=== PATIENT | male | born 1950 ===

== ENCOUNTER 2020-04-03 12:09 | Emergency (ER) | payer BC ==
--- NOTE | 2020-04-03 13:00 | RADIOLOGY REPORT (SQ) ---
EXAM DESCRIPTION: CHEST SINGLE VIEW IMAGES COMPLETED DATE/TIME: 04/03/2020 12:45 pm REASON FOR STUDY: low O2 sat COMPARISON: None. EXAM PARAMETERS: NUMBER OF VIEWS: One view. TECHNIQUE: Single frontal radiographic view of the chest acquired. RADIATION DOSE: NA LIMITATIONS: None. FINDINGS: LUNGS AND PLEURA: No opacities, masses or pneumothorax. No pleural effusion. MEDIASTINUM AND HILAR STRUCTURES: No masses. Contour normal. HEART AND VASCULAR STRUCTURES: Heart normal in size. Normal vasculature. BONES: No acute findings. HARDWARE: None in the chest. OTHER: No other significant finding. IMPRESSION: NO ACUTE RADIOGRAPHIC FINDING IN THE CHEST. TECHNICAL DOCUMENTATION: JOB ID: [id number] [employer]- All Rights Reserved Reading location - IP/workstation name: [email or web address]
[2020-04-03 13:09] LABS: ABSOLUTE LYMPHOCYTES (AUTO) 1.1 10^3/uL (0.5-4.7); ABSOLUTE MONOCYTES (AUTO) 0.2 10^3/uL (0.1-1.4); ABSOLUTE NEUT (AUTO) 2.6 10^3/uL (1.7-8.2); BASOPHILS % (AUTO) 0.3 % (0-2); HEMOGLOBIN 15.6 g/dL (13.5-17.0); LYMPHOCYTES % (AUTO) 27.4 % (13-45); MEAN CORPUSCULAR HEMOGLOBIN 30.7 pg (27.0-33.4); MEAN CORPUSCULAR HGB CONC 34.6 g/dL (32.0-36.0); MEAN CORPUSCULAR VOLUME 89 fl (80-97); RED BLOOD COUNT 5.06 10^6/uL (4.35-5.55); RED CELL DISTRIBUTION WIDTH 12.4 % (11.5-14.0); SEGMENTED NEUTROPHILS % (AUTO) 66.3 % (42-78); TOTAL CELLS COUNTED % (AUTO) 100 %; WHITE BLOOD COUNT 3.9 10^3/uL (4.0-10.5)
[2020-04-03 13:26] LABS: PLATELET COUNT 93 10^3/uL (150-450)
[2020-04-03 13:39] LABS: BLOOD UREA NITROGEN 21 mg/dL (7-20); GLUCOSE 124 mg/dL (75-110)
[2020-04-03 13:40] LABS: ALBUMIN 4.3 g/dL (3.5-5.0); ALKALINE PHOSPHATASE 65 U/L (38-126); ANION GAP 9 (5-19); ASPARTATE AMINO TRANSFERASE 52 U/L (17-59); BILIRUBIN,DIRECT 0.1 mg/dL (0.0-0.4); CARBON DIOXIDE 23 mmol/L (22-30); CHLORIDE 106 mmol/L (98-107); POTASSIUM 3.6 mmol/L (3.6-5.0); TOTAL PROTEIN 8.5 g/dL (6.3-8.2)
[2020-04-03] MEDS ORDERED: NORMAL SALINE 1000 ML 1,000 ML IV ONE (13:47)
--- NOTE | 2020-04-03 13:52 | ER Document Report ---
ED General - General Chief Complaint: General Weakness Stated Complaint: GENERAL WEAKNESS Time Seen by Provider: 04/03/20 13:06 Notes: Patient is a 69-year-old male with a history of hypertension hyperlipidemia who presents to the emergency department the chief complaint of generalized weakness for the past few days. He states that he recently traveled on an airplane to [place] and back. He denies any known sick contacts. He states upon returning he is felt generally weak. States when he rests he feels fine however if he exerts himself in any way he feels very weak and fatigued. States that sometimes he feels like he might pass out. He denies any episodes of syncope or loss of consciousness. He denies any known fevers at home was febrile upon arrival here. He denies any associated symptoms. No chest pain, no shortness of breath, no lower extremity pain or swelling, no cough, no hemoptysis, no history of DVT or PE. No recent surgery. Patient denies any shortness of breath. No known exposures to COVID-19 or any other known sick contacts. TRAVEL OUTSIDE OF THE [place] IN LAST 30 DAYS: No - Related Data Allergies/Adverse Reactions: No Known Allergies Allergy (Unverified 04/03/20 12:34) Home Medications: HTN and highcholesterol meds Past Medical History - Social History Smoking Status: Never Smoker Family History: Reviewed & Not Pertinent Patient has homicidal ideation: No Review of Systems - Review of Systems Constitutional: Fever, Malaise, Weakness -: Yes All other systems reviewed and negative Physical Exam - Vital signs Vitals: Temp Pulse Resp BP Pulse Ox 101.9 F H 89 21 H 143/85 H 92 04/03/20 12:19 04/03/20 12:19 04/03/20 12:19 04/03/20 12:19 04/03/20 12:19 - General General appearance: Appears well, Alert In distress: None - HEENT Head: Normocephalic, Atraumatic Eyes: Normal Conjunctiva: Normal Extraocular movements intact: Yes Neck: Normal, Supple - Respiratory Respiratory status: No respiratory distress Chest status: Nontender Breath sounds: Normal Chest palpation: Normal - Cardiovascular Rhythm: Regular Heart sounds: Normal auscultation - Abdominal Inspection: Normal Distension: No distension Bowel sounds: Normal Tenderness: Nontender Organomegaly: No organomegaly - Extremities General upper extremity: Normal inspection, Nontender, Normal color, Normal ROM, Normal temperature General lower extremity: Normal inspection, Nontender, Normal color, Normal ROM, Normal temperature, Normal weight bearing. No: Sergio's sign - Neurological Neuro grossly intact: Yes Cognition: Normal Orientation: AAOx4 - Psychological Associated symptoms: Normal affect, Normal mood - Skin Skin Temperature: Warm Skin Moisture: Dry Skin Color: Normal Course - Re-evaluation Re-evalutation: 04/03/20 13:53 EK. Sinus rhythm at 80 bpm. Prolonged [place] at 200. No STEMI. Some T wave inversions in V1. No prior for comparison. Interpreted by ED attending. 04/03/20 16:07 Dr. Sidhu reviewed follow-up EKG, agreed with sinus rhythm and no STEMI. Artifact. 04/03/20 16:37 Patient was ambulated back and forth to the bathroom and monitored over 2 different occasions. The first time he was reported that he desaturated to about 92% with exertion and quickly rebounded to 94% when still and 100% at rest. Second ambulatory effort showed the patient only dropping to 94% on room air when ambulated. And quickly returning 200% on room air when seated. Discussed options of admission versus discharge and home isolation. Patient prefers and states that he feels comfortable being discharged home. Because of the bilateral infiltrates we will start him on Zithromax and amoxicillin. We discussed fever control, he was given Tylenol here. Given a liter of fluids. He does not have chest pain or cough or shortness of breath. He is nontoxic in appearance. At this point is felt that he is stable for discharge to home for self monitoring, self-isolation quarantine. I did discuss with him at extreme length to have a low threshold for return to the department. Encouraged to isolate until a negative test result is achieved or if a positive result is achieved until he is 72 hours symptom-free while following up via telemedicine with his regular doctor. I advised that he return here or any ER immediately with any new, persistent or worsening symptoms. He verbalized understood and agreed. 04/03/20 16:58 Patient's repeat troponin trending down. - Vital Signs Vital signs: Temp Pulse Resp BP Pulse Ox 99.0 F 90 28 H 138/81 H 96 04/03/20 12:36 04/03/20 12:30 04/03/20 16:00 04/03/20 12:30 04/03/20 16:00 - Laboratory Result Diagrams: 04/03/20 12:50 04/03/20 12:50 Laboratory results interpreted by me: 04/03/20 04/03/20 12:50 12:50 WBC 3.9 L Plt Count 93 L BUN 21 H Glucose 124 H Total Protein 8.5 H Discharge - Discharge Clinical Impression: Person under investigation for COVID-19 Pneumonia Qualifiers: Pneumonia type: due to unspecified organism Laterality: unspecified laterality Lung location: unspecified part of lung Qualified Code(s): J18.9 - Pneumonia, unspecified organism Fever Qualifiers: Fever type: unspecified Qualified Code(s): R50.9 - Fever, unspecified Condition: Stable Disposition: HOME, SELF-CARE Instructions: COVID-19 Guidance for Persons Under Investigation Additional Instructions: Please self isolate and quarantine in your home at this time. If you receive a negative result you may exit quarantine however if the results returned positive as we suspect you must remain quarantined until 72 hours symptom-free. Please call your doctor for telemedicine follow-up. Please return here or any emergency department immediately with any new, persistent or worsening symptoms. Prescriptions: Amoxicillin Trihydrate [Amoxil 500 mg Capsule] 500 mg PO TID 7 Days #30 capsule Azithromycin [Zithromax 250 mg Tablet] 250 mg PO ASDIR PRN #4 tablet PRN Reason:
[2020-04-03 14:25] LABS: INTERNATIONAL RATION (INR) 0.98; PARTIAL THROMBOPLASTIN TIME 32.5 SEC (23.5-35.8); PHOSPHORUS 3.2 mg/dL (2.5-4.5)
--- NOTE | 2020-04-03 14:25 | RADIOLOGY REPORT (SQ) ---
EXAM DESCRIPTION: CTA CHEST IMAGES COMPLETED DATE/TIME: 04/03/2020 2:04 pm REASON FOR STUDY: low 02, tachypnea COMPARISON: Chest radiograph 04/03/2020 TECHNIQUE: CT scan of the chest performed using helical scanning technique with dynamic intravenous contrast injection. Images reviewed with lung, soft tissue and bone windows. Reconstructed coronal and sagittal MPR images reviewed. Additional 3 dimensional post-processing performed to develop Maximal Intensity Projection images (WA P). All images stored on PACS. All CT scanners at this facility use dose modulation, iterative reconstruction, and/or weight based d osing when appropriate to reduce radiation dose to as low as reasonably achievable (ALARA). [facility]: Dose Right [facility]: CareDose [facility]: Dose Right [facility]: Teradose 4D [facility]: [facility] CONTRAST TYPE AND DOSE: contrast/concentration: Isovue 350.00 mmol/ml; Total Contrast Delivered: 61. 0 ml; Total Saline Delivered: 48.1 ml Contrast bolus adequate for pulmonary arteries and aorta. RENAL FUNCTION: BUN 21; creatinine 0.94 RADIATION DOSE: CT Rad equipment meets quality standard of care and radiation dose reduction techniq ues were employed. CTDIvol: 13.2 - 19.2 mGy. DLP: 736 mGy-cm. . LIMITATIONS: None. FINDINGS: LUNGS AND PLEURA: Multifocal mixed interstitial and airspace opacities in a peripheral dis tribution, some of these appear to be wedge-shaped, others appear rounded. All lobes are involved. No pleural effusion. No pneumothorax. AORTA AND GREAT VESSELS: No aneurysm. No dissection. HEART: No pericardial effusion. No significant coronary artery calcifications. PULMONARY ARTERIES: No emboli visualized in the main pulmonary arteries or the segmental branches. HILAR AND MEDIASTINAL STRUCTURES: Scattered mediastinal lymph nodes measuring up to 1.5 cm in the anastasiya rt axis. HARDWARE: None in the chest. UPPER ABDOMEN: No significant findings. Limited exam. THYROID AND OTHER SOFT TISSUES: No masses. No adenopathy. BONES: No acute or significant finding. 3D MIPS: Confirm above findings. OTHER: No other significant finding. IMPRESSION: 1. No central or segmental pulmonary embolus. 2. Multifocal rounded to geographic areas of mixed interstitial and airspace opacities in a peripher al distribution, consistent with a multi lobar pneumonia. Given distribution, recommend consideratio n for atypical/viral (to include COVID-19) etiology in treatment planning. COMMENT: Quality ID # [id number]: Final reports with documentation of one or more dose reduction techniques (e.g., Automated exposure control, adjustment of the mA and/or kV according to patient size, use of iterative reconstruction technique) TECHNICAL DOCUMENTATION: JOB ID: [id number] 2010 [employer]- All Rights Reserved Reading location - IP/workstation name: [email or web address]
[2020-04-03] MEDS ORDERED: ACETAMINOPHEN 325 MG TABLET PO ONE (16:31)
[2020-04-03] MEDS ORDERED: AZITHROMYCIN 250 MG TABLET PO ONE (16:33)
[2020-04-03] MEDS ORDERED: AMOXICILLIN TRIHYDRATE 500 MG CAPSULE PO ONE (16:33)
[2020-04-03 17:08] VITALS: BP 154/83
--- NOTE | 2020-04-03 18:18 | EKG REPORT ---
SEVERITY:- ABNORMAL ECG - SINUS RHYTHM 88. INCOMPLETE RBBB AND LAFB : Confirmed by: Navi Amaya MD 03-Apr-2020 18:18:04
--- NOTE | 2020-04-03 18:19 | EKG REPORT ---
SEVERITY:- ABNORMAL ECG - SINUS RHYTHM PROBABLE LEFT ATRIAL ABNORMALITY INCOMPLETE RBBB AND LAFB CONSIDER RIGHT VENTRICULAR HYPERTROPHY : Confirmed by: Navi Amaya MD 03-Apr-2020 18:18:35
== END 2020-04-03 17:08 | disposition home or self-care (01) ==
LOC: ER 12:09
DX: U07.1 COVID-19 (principal); J18.9 Pneumonia, unspecified organism; R50.9 Fever, unspecified; Z20.828 Contact with and (suspected) exposure to other viral communicable diseases; R53.1 Weakness; I10 Essential (primary) hypertension; E78.5 Hyperlipidemia, unspecified
CPT/HCPCS: 93005; 99285; 96360; 36415; 83735; 84100; 85025; 85610; 85730; 87635; 80053; 84484; 71045; 71275; 93010; J7030; C9803

== ENCOUNTER 2020-04-09 12:55 | Inpatient (IN) | payer MEDICARE, BC ==
[2020-04-09 14:01] LABS: VENOUS BLOOD BASE EXCESS 2.6 mmol/L; VENOUS BLOOD HCO3 28.1 mmol/L (20-32); VENOUS BLOOD PCO2 45.9 mmHg (35-63); VENOUS BLOOD PH 7.4 (7.30-7.42)
[2020-04-09 14:10] LABS: ABSOLUTE LYMPHOCYTES (AUTO) 0.6 10^3/uL (0.5-4.7); ABSOLUTE MONOCYTES (AUTO) 0.3 10^3/uL (0.1-1.4); ABSOLUTE NEUT (AUTO) 7.8 10^3/uL (1.7-8.2); BASOPHILS % (AUTO) 0.2 % (0-2); EOSINOPHILS % (AUTO) 0.4 % (0-6); HEMATOCRIT 47.3 % (37.9-51.0); HEMOGLOBIN 16.6 g/dL (13.5-17.0); LYMPHOCYTES % (AUTO) 7.1 % (13-45); MEAN CORPUSCULAR HGB CONC 35.1 g/dL (32.0-36.0); MEAN CORPUSCULAR VOLUME 88 fl (80-97); PLATELET COUNT 191 10^3/uL (150-450); RED BLOOD COUNT 5.35 10^6/uL (4.35-5.55); RED CELL DISTRIBUTION WIDTH 12.7 % (11.5-14.0); SEGMENTED NEUTROPHILS % (AUTO) 89.3 % (42-78); TOTAL CELLS COUNTED % (AUTO) 100 %; WHITE BLOOD COUNT 8.7 10^3/uL (4.0-10.5)
[2020-04-09 14:15] LABS: PROTHROMBIN TIME 14.2 SEC (11.4-15.4)
--- NOTE | 2020-04-09 14:26 | RADIOLOGY REPORT (SQ) ---
EXAM DESCRIPTION: CHEST SINGLE VIEW IMAGES COMPLETED DATE/TIME: 04/09/2020 1:56 pm REASON FOR STUDY: bed 5 sepsis protocol COMPARISON: 04/03/2020 EXAM PARAMETERS: NUMBER OF VIEWS: One view. TECHNIQUE: Single frontal radiographic view of the chest acquired. RADIATION DOSE: NA LIMITATIONS: None. FINDINGS: LUNGS AND PLEURA: There are patchy infiltrates in both lower lung youngblood there were not pr esent on the prior study. Lower lung volumes. MEDIASTINUM AND HILAR STRUCTURES: No masses. Contour normal. HEART AND VASCULAR STRUCTURES: Heart size is borderline. This is accentuated by the low lung volumes . BONES: No acute findings. HARDWARE: None in the chest. OTHER: No other significant finding. IMPRESSION: Bilateral airspace disease, pneumonia versus atelectasis. May represent an atypical inf ectious/ inflammatory process. TECHNICAL DOCUMENTATION: JOB ID: [id number] 2010 [employer]- All Rights Reserved Reading location - IP/workstation name: [email or web address]
[2020-04-09 14:35] LABS: ALBUMIN 3.6 g/dL (3.5-5.0); ALKALINE PHOSPHATASE 84 U/L (38-126); ANION GAP 10 (5-19); ASPARTATE AMINO TRANSFERASE 136 U/L (17-59); BILIRUBIN,DIRECT 0.2 mg/dL (0.0-0.4); BILIRUBIN,TOTAL 1.2 mg/dL (0.2-1.3); BLOOD UREA NITROGEN 31 mg/dL (7-20); CALCIUM 9.4 mg/dL (8.4-10.2); CARBON DIOXIDE 28 mmol/L (22-30); CHLORIDE 101 mmol/L (98-107); GLUCOSE 160 mg/dL (75-110); POTASSIUM 3.9 mmol/L (3.6-5.0); TOTAL PROTEIN 7.5 g/dL (6.3-8.2)
--- NOTE | 2020-04-09 14:51 | ER Document Report ---
ED General - General Chief Complaint: Shortness Of Breath Stated Complaint: COUGH,CONGESTION,DIARRHEA Time Seen by Provider: 04/09/20 13:40 Mode of Arrival: Ambulatory Information source: Patient TRAVEL OUTSIDE OF THE [place] IN LAST 30 DAYS: No - HPI Notes: Patient presents complaint of shortness of breath. Patient had a positive COVID test approximately 3 to 4 days ago. He states he has progressively become more short of breath. It is worse with exertion and better with rest. There is obviously no radiation of the symptoms. It is moderate to severe currently. He does have a dry cough as well and has had some fever chills and body aches. The symptoms have been constant. - Related Data Allergies/Adverse Reactions: No Known Allergies Allergy (Verified 04/09/20 13:50) Past Medical History - General Information source: Patient - Social History Smoking Status: Former Smoker Frequency of alcohol use: None Drug Abuse: None Family History: Reviewed & Not Pertinent Patient has homicidal ideation: No Review of Systems - Review of Systems Constitutional: Chills, Malaise Cardiovascular: denies: Chest pain, Palpitations Respiratory: Cough, Short of breath -: Yes All other systems reviewed and negative Physical Exam - Vital signs Vitals: Temp Pulse Resp BP Pulse Ox 98.7 F 104 H 24 H 130/69 H 84 L 04/09/20 13:04 04/09/20 13:04 04/09/20 13:04 04/09/20 13:04 04/09/20 13:04 Interpretation: Tachycardic, Hypoxic, Tachypneic - General General appearance: Appears well, Alert - HEENT Head: Normocephalic, Atraumatic Eyes: Normal - Respiratory Respiratory status: Respiratory distress - mild Chest status: Nontender Breath sounds: Decreased air movement, Rhonchi Chest palpation: Normal - Cardiovascular Rhythm: Tachycardia Heart sounds: Normal auscultation Murmur: No - Abdominal Inspection: Normal Distension: No distension Bowel sounds: Normal Tenderness: Nontender Organomegaly: No organomegaly - Back Back: Normal, Nontender - Extremities General upper extremity: Normal inspection, Nontender, Normal color, Normal ROM, Normal temperature General lower extremity: Normal inspection, Nontender, Normal color, Normal ROM, Normal temperature, Normal weight bearing. No: Sergio's sign - Neurological Neuro grossly intact: Yes Cognition: Normal Orientation: AAOx4 Mariajose Coma Scale Eye Opening: Spontaneous Mariajose Coma Scale Verbal: Oriented Mariajose Coma Scale Motor: Obeys Commands [place] Coma Scale Total: 15 Speech: Normal Motor strength normal: LUE, RUE, LLE, RLE Sensory: Normal - Psychological Associated symptoms: Normal affect, Normal mood - Skin Skin Temperature: Warm Skin Moisture: Dry Skin Color: Normal Course - Re-evaluation Re-evalutation: 04/09/20 14:51 Patient presents with shortness of breath and known COVID infection. X-ray is consistent with COVID viral infection. Patient will be admitted to the hospital for further therapy. - Vital Signs Vital signs: Temp Pulse Resp BP Pulse Ox 98.9 F 100 38 H 136/76 H 91 L 04/09/20 13:50 04/09/20 13:50 04/09/20 14:01 04/09/20 14:01 04/09/20 14:01 - Laboratory Result Diagrams: 04/09/20 13:44 04/09/20 13:44 Laboratory results interpreted by me: 04/09/20 04/09/20 13:44 13:44 Lymph % (Auto) 7.1 L Seg Neutrophils % 89.3 H BUN 31 H Glucose 160 H AST 136 H ALT 66 H - Diagnostic Test Radiology reviewed: Image reviewed, Reports reviewed - EKG Interpretation by Me EKG shows normal: Sinus rhythm Rate: Normal - 98 Rhythm: NSR [place]/QRS: RBBB, LAHB/LAFB Critical Care Note - Critical Care Note Total time excluding time spent on procedures (mins): 50 Comments: Approximately 50 minutes of critical care time were spent on this hypoxic patient with COVID pneumonia. This time was spent reviewing old records. It was spent talking to multiple consultants. It is spent doing multiple reassessments. It is spent reviewing imaging and laboratory values. Discharge - Discharge Clinical Impression: Pneumonia due to COVID-19 virus, Hypoxia Condition: Serious Disposition: ADMITTED INPATIENT Admitting Provider: Colleen (Hospitalist) Jolene monique to admit Unit Admitted: Telemetry
[2020-04-09] MEDS ORDERED: ACETAMINOPHEN 325 MG TABLET PO PRN (15:37)
[2020-04-09] MEDS ORDERED: GUAIFENESIN SYRP 200 MG/10 ML UDC PO PRN (15:37)
[2020-04-09] MEDS ORDERED: ALBUTEROL SULFATE 0.083% NEB 2.5 MG/3 ML AMPUL NEB PRN (15:37)
[2020-04-09] MEDS ORDERED: HYDRALAZINE HCL INJ/PF 20 MG/1 ML SDV IV PRN (15:56)
[2020-04-09] MEDS ORDERED: DEXAMETHASONE SOD PHOSPHATE INJ 4 MG/1 ML VIAL IV ONE (16:00)
--- NOTE | 2020-04-09 16:03 | PDOC H&P ---
History of Present Illness Admission Date/PCP: 04/09/20 15:14 Patient complains of: Shortness of breath History of Present Illness: MARYLU SINGH is a 69 year old male the past medical history significant for hypertension, hyperlipidemia, GERD who presented to the emergency department 04/03/2020 with complaint of generalized weakness; he was discharged home at that time with COVID-19 test pending. This test is since returned positive. He represents today with complaint of chest discomfort on deep inspiration, cough, and dyspnea while at rest. He reports low-grade temperatures at home; T-max 100.7 last 24 hours. Evaluation in the emergency department today revealed Tachycardia, tachypnea (RR 38), hypoxia on room air (84%; 91 on 4 L by nasal cannula) CBC, PT/INR, VBG, and chemistry are unremarkable. Troponin negative. Lactic acid normal. D-dimer, ferritin, LDH, CRP are pending. Chest x-ray shows worsening bilateral airspace disease. Patient is referred to the hospitalist service for admission and management of the above-stated complaints and findings. Past Medical History Cardiac Medical History: Reports: Hyperlipidema, Hypertension Denies: Atrial Fibrillation, Congestive Heart Failure, Coronary Artery Disease, Myocardial Infarction Pulmonary Medical History: Reports: None EENT Medical History: Reports: None Neurological Medical History: Reports: None Endocrine Medical History: Reports: None Renal/ Medical History: Reports: None Malignancy Medical History: Reports: None GI Medical History: Reports: Gastroesophageal Reflux Disease Musculoskeltal Medical History: Reports: None Skin Medical History: Reports: None Psychiatric Medical History: Reports: None Traumatic Medical History: Reports: None Hematology: Reports: None Infectious Medical History: Reports: None Past Surgical History Past Surgical History: Reports: Cholecystectomy Social History Information Source: Patient Lives with: Family Smoking Status: Former Smoker Electronic Cigarette use?: No Frequency of Alcohol Use: Rare Hx Recreational Drug Use: No Drugs: None Hx Prescription Drug Abuse: No - Advance Directive Resuscitation Status: Full Code Surrogate healthcare decision maker:: Patient's . Family History Family History: Reviewed & Not Pertinent Parental Family History Reviewed: Yes Children Family History Reviewed: Yes Sibling(s) Family History Reviewed.: Yes Medication/Allergy Home Medications: Amlodipine Besylate [Norvasc 10 mg Tablet] 10 mg PO DAILY 04/09/20 Atorvastatin Calcium [Lipitor 40 mg Tablet] 40 mg PO QHS 04/09/20 Fenofibrate Nanocrystallized [Tricor 48 mg Tablet] 54 mg PO QHS 04/09/20 Omeprazole 20 mg PO DAILY 04/09/20 Allergies/Adverse Reactions: No Known Allergies Allergy (Verified 04/09/20 13:50) Review of Systems Constitutional: PRESENT: anorexia, chills, fatigue, fever(s), headache(s), weakness. ABSENT: weight gain, weight loss Eyes: ABSENT: visual disturbances Ears: ABSENT: hearing changes Cardiovascular: ABSENT: chest pain, dyspnea on exertion, edema, orthropnea, palpitations Respiratory: PRESENT: cough, dyspnea. ABSENT: hemoptysis Gastrointestinal: PRESENT: diarrhea. ABSENT: abdominal pain, constipation, hematemesis, hematochezia, nausea, vomiting Genitourinary: ABSENT: dysuria, hematuria Musculoskeletal: ABSENT: joint swelling Integumentary: ABSENT: rash, wounds Neurological: ABSENT: abnormal gait, abnormal speech, confusion, dizziness, focal weakness, syncope Psychiatric: ABSENT: anxiety, depression, homidical ideation, suicidal ideation Endocrine: ABSENT: cold intolerance, heat intolerance, polydipsia, polyuria Hematologic/Lymphatic: ABSENT: easy bleeding, easy bruising Physical Exam Vital Signs: Temp Pulse Resp BP Pulse Ox 98.9 F 100 38 H 136/76 H 91 L 04/09/20 13:50 04/09/20 13:50 04/09/20 14:01 04/09/20 14:01 04/09/20 14:01 Intake & Output 04/08/20 04/09/20 04/10/20 06:59 06:59 06:59 Weight 81.647 kg General appearance: PRESENT: cooperative, mild distress, well-developed, well- nourished, other - Acutely ill-appearing Head exam: PRESENT: atraumatic, normocephalic Eye exam: PRESENT: conjunctiva pink, EOMI, PERRLA. ABSENT: scleral icterus Mouth exam: PRESENT: moist, tongue midline Respiratory exam: PRESENT: accessory muscle use, rhonchi, symmetrical, tachypnea, unlabored, other - Supplemental oxygen by nasal cannula. ABSENT: rales, wheezes Cardiovascular exam: PRESENT: RRR. ABSENT: diastolic murmur, rubs, systolic murmur Pulses: PRESENT: normal dorsalis pedis pul Vascular exam: PRESENT: normal capillary refill GI/Abdominal exam: PRESENT: normal bowel sounds, soft. ABSENT: distended, guarding, mass, organolmegaly, rebound, tenderness Rectal exam: PRESENT: deferred Extremities exam: PRESENT: full ROM. ABSENT: calf tenderness, clubbing, pedal edema Neurological exam: PRESENT: alert, awake, oriented to person, oriented to place, oriented to time, oriented to situation, CN II-XII grossly intact. ABSENT: motor sensory deficit Psychiatric exam: PRESENT: anxious - Tearful, appropriate affect, normal mood. ABSENT: homicidal ideation, suicidal ideation Skin exam: PRESENT: dry, intact, warm. ABSENT: cyanosis, rash Results Laboratory Results: 04/09/20 13:44 04/09/20 13:44 04/09/20 04/09/20 04/09/20 13:44 13:44 13:44 WBC 8.7 RBC 5.35 Hgb 16.6 Hct 47.3 MCV 88 MCH 31.0 MCHC 35.1 RDW 12.7 Plt Count 191 Seg Neutrophils % 89.3 H VBG pH 7.40 VBG pCO2 45.9 VBG HCO3 28.1 VBG Base Excess 2.6 Sodium 139.3 Potassium 3.9 Chloride 101 Carbon Dioxide 28 Anion Gap 10 BUN 31 H Creatinine 0.84 Est GFR ( Amer) > 60 Glucose 160 H Lactic Acid Calcium 9.4 Total Bilirubin 1.2 AST 136 H Alkaline Phosphatase 84 Total Protein 7.5 Albumin 3.6 04/09/20 13:44 WBC RBC Hgb Hct MCV MCH MCHC RDW Plt Count Seg Neutrophils % VBG pH VBG pCO2 VBG HCO3 VBG Base Excess Sodium Potassium Chloride Carbon Dioxide Anion Gap BUN Creatinine Est GFR ( Amer) Glucose Lactic Acid 2.0 Calcium Total Bilirubin AST Alkaline Phosphatase Total Protein Albumin 04/09/20 13:44 Troponin I < 0.012 Impressions: Chest X-Ray 04/09/20 13:34 IMPRESSION: Bilateral airspace disease, pneumonia versus atelectasis. May represent an atypical infectious/ inflammatory process. Assessment and Plan - Diagnosis (1) Pneumonia due to COVID-19 virus Is this a current diagnosis for this admission?: Yes Plan: Confirmed COVID positive (04/03/2020) Ferritin, LDH, CRP pending. D-dimer elevated to 3.05. Patient is admitted to the medical floor on continuous cardiac telemetry. He is placed on IV azithromycin x5 days. Start Decadron 4 mg IV twice daily. D-dimer is elevated; will start full dose Lovenox. We will provide supplemental oxygen as needed to maintain saturations greater than 89%. As needed nebulizer treatments. Vitamin C, vitamin D, zinc, melatonin supplementation. Every 2 turns; encourage prone positioning. Incentive spirometer and flutter valve to bedside. (2) Acute respiratory failure with hypoxia Is this a current diagnosis for this admission?: Yes Plan: Secondary to #1. Management as above. (3) Hypertension Qualifiers: Hypertension type: essential hypertension Qualified Code(s): I10 - Essential (primary) hypertension Is this a current diagnosis for this admission?: Yes Plan: Continue home dose amlodipine. IV hydralazine as needed for blood pressure control. Cardiac diet. (4) Hyperlipidemia Is this a current diagnosis for this admission?: Yes Plan: Home dose atorvastatin and fenofibrate. Cardiac diet. - Time Time Spent with patient: 35 or more minutes Medications reviewed and adjusted accordingly: Yes Anticipated discharge: Home - Inpatient Certification Based on my medical assessment, after consideration of the patient's comorbidities, presenting symptoms, or acuity I expect that the services needed warrant INPATIENT care.: Yes I certify that my determination is in accordance with my understanding of Medicare's requirements for reasonable and necessary INPATIENT services [42 CFR 412.3e].: Yes Medical Necessity: Failure to Improve With Outpatient Therapy, Need For IV Fluids, Need For Continuous Telemetry Monitoring, Need for Nebulizer Therapy and Monitoring of Response, Risk of Complication if Not Cared For in Hospital, Risk of Diagnosis Which Will Require Inpatient Eval/Care/Monitoring
[2020-04-09] MEDS ORDERED: AZITHROMYCIN 500 MG in DEXTROSE 5%-WATER 250 ML IV SCH (17:00)
[2020-04-09 17:07] LABS: C-REACTIVE PROTEIN 427.8 mg/L (<10.0)
[2020-04-09] MEDS ORDERED: ZINC SULFATE 220 MG CAPSULE PO SCH (18:00)
[2020-04-09] MEDS ORDERED: ASCORBIC ACID 500 MG TABLET PO SCH (18:00)
[2020-04-09] MEDS: AZITHROMYCIN 500 MG in DEXTROSE 5%-WATER 250 ML IV SCH (21:00)
[2020-04-09] MEDS: ASCORBIC ACID 500 MG TABLET PO SCH (21:52)
[2020-04-09] MEDS: ZINC SULFATE 220 MG CAPSULE PO SCH (21:52)
[2020-04-09] MEDS: GUAIFENESIN 600 MG TABLET.SA PO SCH (21:52)
[2020-04-09] MEDS: MELATONIN 3 MG TABLET PO SCH (21:52)
[2020-04-09] MEDS: ATORVASTATIN CALCIUM 40 MG TABLET PO SCH (21:52)
[2020-04-09] MEDS: FENOFIBRATE NANOCRYSTALLIZED 48 MG TABLET PO SCH (21:53)
[2020-04-09] MEDS: NORMAL SALINE 1000 ML 1,000 ML IV PRN (21:53)
[2020-04-09] MEDS: DEXAMETHASONE SOD PHOSPHATE INJ 4 MG/1 ML VIAL IV SCH (21:53)
[2020-04-09] MEDS: ENOXAPARIN SODIUM INJ 80 MG/0.8 ML DISP.SYRIN SUBCUT SCH (21:55)
[2020-04-10 00:10] LABS: APPEARANCE,URINE SLIGHTLY-CLOUDY; BILIRUBIN,URINE NEGATIVE (NEGATIVE); COLOR,URINE YELLOW; GLUCOSE, URINE NEGATIVE (NEGATIVE); KETONES,URINE NEGATIVE (NEGATIVE); LEUKOCYTE ESTERASE,URINE NEGATIVE (NEGATIVE); NITRITE,URINE NEGATIVE (NEGATIVE); PROTEIN,URINE 100 mg/dL (NEGATIVE); URINE SPECIFIC GRAVITY 1.023
[2020-04-10 05:15] LABS: ABSOLUTE LYMPHOCYTES (AUTO) 0.5 10^3/uL (0.5-4.7); ABSOLUTE MONOCYTES (AUTO) 0.2 10^3/uL (0.1-1.4); ABSOLUTE NEUT (AUTO) 6.7 10^3/uL (1.7-8.2); BASOPHILS % (AUTO) 0.1 % (0-2); HEMATOCRIT 40.8 % (37.9-51.0); LYMPHOCYTES % (AUTO) 6.5 % (13-45); MEAN CORPUSCULAR VOLUME 89 fl (80-97); MONOCYTES % (AUTO) 2.4 % (3-13); PLATELET COUNT 184 10^3/uL (150-450); RED CELL DISTRIBUTION WIDTH 12.4 % (11.5-14.0); TOTAL CELLS COUNTED % (AUTO) 100 %; WHITE BLOOD COUNT 7.4 10^3/uL (4.0-10.5)
[2020-04-10 05:16] LABS: HEMOGLOBIN 14.3 g/dL (13.5-17.0)
[2020-04-10 05:25] LABS: ANION GAP 8 (5-19); BLOOD UREA NITROGEN 25 mg/dL (7-20); CALCIUM 8.7 mg/dL (8.4-10.2); CARBON DIOXIDE 24 mmol/L (22-30); CHLORIDE 104 mmol/L (98-107); GLUCOSE 172 mg/dL (75-110); POTASSIUM 3.9 mmol/L (3.6-5.0)
[2020-04-10] MEDS: ZINC SULFATE 220 MG CAPSULE PO SCH (10:17)
[2020-04-10] MEDS: AMLODIPINE BESYLATE 10 MG TABLET PO SCH (10:17)
[2020-04-10] MEDS: ASCORBIC ACID 500 MG TABLET PO SCH ×2 (10:17→17:06)
[2020-04-10] MEDS: CHOLECALCIFEROL (D3) 400 UNIT TABLET PO SCH (10:18)
[2020-04-10] MEDS: PANTOPRAZOLE SODIUM 20 MG TABLET.DR PO SCH (10:18)
[2020-04-10] MEDS: DEXAMETHASONE SOD PHOSPHATE INJ 4 MG/1 ML VIAL IV SCH ×2 (10:18→21:48)
[2020-04-10] MEDS: GUAIFENESIN 600 MG TABLET.SA PO SCH ×2 (10:18→21:48)
[2020-04-10] MEDS: ENOXAPARIN SODIUM INJ 80 MG/0.8 ML DISP.SYRIN SUBCUT SCH ×2 (10:18→21:48)
--- NOTE | 2020-04-10 13:25 | EKG REPORT ---
SEVERITY:- ABNORMAL ECG - SINUS RHYTHM PROBABLE LEFT ATRIAL ABNORMALITY INCOMPLETE RBBB AND LAFB CONSIDER RIGHT VENTRICULAR HYPERTROPHY : Confirmed by: Roberto Michel MD 10-Apr-2020 13:25:03
--- NOTE | 2020-04-10 15:34 | PDOC PROGRESS REPORT ---
Subjective Progress Note for:: 04/10/20 Subjective:: MARYLU SINGH is a 69 year old male the past medical history significant for hypertension, hyperlipidemia, GERD who was admitted 04/09/2020 with acute respiratory failure with hypoxia secondary to COVID-19 pneumonia. Patient is seen on morning rounds. He is found resting in bed on supplemental oxygen via an HFNC at 30 L/min and 95% FiO2. Currently maintaining oxygen saturations in the low to mid 90s. He has continued mild tachypnea with shallow breathing but overall decreased work of breathing as compared to yesterday. He endorses pleurisy on deep inspiration and coughing. He also admits to continued loose stools. Patient reports profound fatigue but otherwise states that he is feeling slightly better. T-max 99.7 overnight. He denies headache, palpitations, abdominal pain, nausea and vomiting. He has no questions or concerns at this time. Reason For Visit: ACUTE RESPIRATORY FAILURE WITH HYPOXA,COVID Physical Exam Vital Signs: Temp Pulse Resp BP Pulse Ox 97.6 F 82 22 H 121/71 96 04/10/20 12:01 04/10/20 14:00 04/10/20 12:01 04/10/20 12:01 04/10/20 12:01 Pulse Oximeter Continuous Start: 04/09/20 15:38 Freq: RTQ4 Status: Active Protocol: Document 04/10/20 08:50 [facility] (Rec: 04/10/20 10:11 [facility] [id number]) Pulse Oximetry Assessment Oxygen Saturation (92-100) 96 Oxygen Flow Rate (L/min) 30 Oxygen Delivery Method High Flow Nasal Cannula Fraction of Inspired Oxygen (FIO2) 94 Equipment Usage Equipment in Use Continuous SpO2 Machine # 5 Intake & Output 04/09/20 04/10/20 04/11/20 06:59 06:59 06:59 Intake Total 250 Output Total 400 300 Balance -150 -300 Weight 84 kg 84 kg General appearance: PRESENT: no acute distress, cooperative, well-developed, well-nourished Head exam: PRESENT: atraumatic, normocephalic Eye exam: PRESENT: conjunctiva pink, EOMI, PERRLA. ABSENT: scleral icterus Mouth exam: PRESENT: moist, tongue midline Respiratory exam: PRESENT: rhonchi - Right lower youngblood, symmetrical, tachypnea - shallow, other - Pleurisy; supplemental oxygen via HFNC. ABSENT: rales, wheezes Cardiovascular exam: PRESENT: RRR. ABSENT: diastolic murmur, rubs, systolic murmur Pulses: PRESENT: normal dorsalis pedis pul Vascular exam: PRESENT: normal capillary refill GI/Abdominal exam: PRESENT: normal bowel sounds, soft. ABSENT: distended, guarding, mass, organolmegaly, rebound, tenderness Rectal exam: PRESENT: deferred Extremities exam: PRESENT: full ROM. ABSENT: calf tenderness, clubbing, pedal edema Neurological exam: PRESENT: alert, awake, oriented to person, oriented to place, oriented to time, oriented to situation, CN II-XII grossly intact. ABSENT: motor sensory deficit Psychiatric exam: PRESENT: appropriate affect, normal mood. ABSENT: homicidal ideation, suicidal ideation Skin exam: PRESENT: dry, intact, warm. ABSENT: cyanosis, rash Results Laboratory Results: 04/10/20 04:44 04/10/20 04:44 04/09/20 04/09/20 04/09/20 13:44 18:51 22:09 WBC RBC Hgb Hct MCV MCH MCHC RDW Plt Count Seg Neutrophils % Sodium Potassium Chloride Carbon Dioxide Anion Gap BUN Creatinine Est GFR ( Amer) Glucose Lactic Acid 1.5 1.7 Calcium Ferritin 3370.00 H C-Reactive Protein 427.8 H Urine Color Urine Appearance Urine pH Ur Specific [place] Urine Protein Urine Glucose (UA) Urine Ketones Urine Blood Urine Nitrite Ur Leukocyte Esterase Urine WBC (Auto) Urine RBC (Auto) 04/09/20 04/10/20 04/10/20 23:55 04:44 04:44 WBC 7.4 RBC 4.60 Hgb 14.3 D Hct 40.8 MCV 89 MCH 31.0 MCHC 35.0 RDW 12.4 Plt Count 184 Seg Neutrophils % 91.0 H Sodium 136.2 L Potassium 3.9 Chloride 104 Carbon Dioxide 24 Anion Gap 8 BUN 25 H Creatinine 0.57 Est GFR ( Amer) > 60 Glucose 172 H Lactic Acid Calcium 8.7 Ferritin C-Reactive Protein Urine Color YELLOW Urine Appearance SLIGHTLY-CLOUDY Urine pH 6.0 Ur Specific [place] 1.023 Urine Protein 100 H Urine Glucose (UA) NEGATIVE Urine Ketones NEGATIVE Urine Blood MODERATE H Urine Nitrite NEGATIVE Ur Leukocyte Esterase NEGATIVE Urine WBC (Auto) 1 Urine RBC (Auto) 0 04/09/20 13:44 Troponin I < 0.012 Impressions: Chest X-Ray 04/09/20 13:34 IMPRESSION: Bilateral airspace disease, pneumonia versus atelectasis. May represent an atypical infectious/ inflammatory process. Assessment and Plan - Diagnosis (1) Pneumonia due to COVID-19 virus Is this a current diagnosis for this admission?: Yes Plan: Confirmed COVID positive (04/03/2020) Ferritin, LDH, CRP pending. D-dimer elevated to 3.05. Patient is admitted to the medical floor on continuous cardiac telemetry. He is placed on IV azithromycin x5 days. Continue Decadron 4 mg IV twice daily. D-dimer is elevated; continue full dose Lovenox. Start hydroxychloroquine; 400 mg twice daily x2 doses followed by 200 mg twice daily for 6 days. We will provide supplemental oxygen as needed to maintain saturations greater than 89%. Currently on HFNC (not Venturi mask as documented in vitals). Scheduled albuterol HFA. As needed nebulizer treatments. Vitamin C, vitamin D, zinc, melatonin supplementation. Every 2 turns; encourage prone positioning. Incentive spirometer and flutter valve to bedside. (2) Acute respiratory failure with hypoxia Is this a current diagnosis for this admission?: Yes Plan: Secondary to #1. Management as above. (3) Hypertension Qualifiers: Hypertension type: essential hypertension Qualified Code(s): I10 - Essential (primary) hypertension Is this a current diagnosis for this admission?: Yes Plan: Adequately controlled at present. Continue home dose amlodipine. IV hydralazine as needed for blood pressure control. Cardiac diet. (4) Hyperlipidemia Is this a current diagnosis for this admission?: Yes Plan: Home dose atorvastatin and fenofibrate. Cardiac diet. - Plan Summary Summary: Discussed use of hydroxychloroquine with Dr. Cary. - Time Time Spent with patient: 35 or more minutes Medications reviewed and adjusted accordingly: Yes Anticipated discharge: Home
[2020-04-10] MEDS: HYDROXYCHLOROQUINE SULFATE 200 MG TABLET PO SCH (17:06)
[2020-04-10] MEDS: ALBUTEROL SULFATE HFA (90 MCG/PUFF) 8 GM MDI IH SCH (20:56)
[2020-04-10] MEDS: FENOFIBRATE NANOCRYSTALLIZED 48 MG TABLET PO SCH (21:48)
[2020-04-10] MEDS: MELATONIN 3 MG TABLET PO SCH (21:48)
[2020-04-10] MEDS: ATORVASTATIN CALCIUM 40 MG TABLET PO SCH (21:48)
[2020-04-10] MEDS: AZITHROMYCIN 500 MG in DEXTROSE 5%-WATER 250 ML IV SCH ×2 (21:48→21:50)
[2020-04-10] MEDS: NORMAL SALINE 1000 ML 1,000 ML IV PRN (23:00)
[2020-04-11] MEDS: ALBUTEROL SULFATE HFA (90 MCG/PUFF) 8 GM MDI IH SCH ×4 (00:50→17:23)
[2020-04-11 05:40] LABS: HEMATOCRIT 38.7 % (37.9-51.0); HEMOGLOBIN 13.6 g/dL (13.5-17.0); MEAN CORPUSCULAR HGB CONC 35.2 g/dL (32.0-36.0); MEAN CORPUSCULAR VOLUME 88 fl (80-97); PLATELET COUNT 189 10^3/uL (150-450); RED CELL DISTRIBUTION WIDTH 12.4 % (11.5-14.0); WHITE BLOOD COUNT 7.6 10^3/uL (4.0-10.5)
[2020-04-11 06:09] LABS: ALBUMIN 2.6 g/dL (3.5-5.0); ALKALINE PHOSPHATASE 64 U/L (38-126); ANION GAP 6 (5-19); ASPARTATE AMINO TRANSFERASE 74 U/L (17-59); BILIRUBIN,TOTAL 0.7 mg/dL (0.2-1.3); BLOOD UREA NITROGEN 20 mg/dL (7-20); CALCIUM 8.9 mg/dL (8.4-10.2); CARBON DIOXIDE 26 mmol/L (22-30); CHLORIDE 105 mmol/L (98-107); GLUCOSE 168 mg/dL (75-110); POTASSIUM 4.2 mmol/L (3.6-5.0); TOTAL PROTEIN 5.9 g/dL (6.3-8.2)
--- NOTE | 2020-04-11 06:42 | EKG REPORT ---
SEVERITY:- ABNORMAL ECG - SINUS RHYTHM FIRST DEGREE AV BLOCK INCOMPLETE RBBB AND LAFB BORDERLINE PROLONGED QT INTERVAL : Confirmed by: Roberto Michel MD 11-Apr-2020 06:41:45
[2020-04-11 07:09] LABS: APPEARANCE,URINE CLEAR; BILIRUBIN,URINE NEGATIVE (NEGATIVE); COLOR,URINE YELLOW; GLUCOSE, URINE NEGATIVE (NEGATIVE); KETONES,URINE NEGATIVE (NEGATIVE); LEUKOCYTE ESTERASE,URINE NEGATIVE (NEGATIVE); NITRITE,URINE NEGATIVE (NEGATIVE); PROTEIN,URINE 100 mg/dL (NEGATIVE); URINE SPECIFIC GRAVITY 1.021; UROBILINOGEN,URINE NEGATIVE mg/dL (<2.0)
[2020-04-11] MEDS: GUAIFENESIN 600 MG TABLET.SA PO SCH ×2 (09:40→21:18)
[2020-04-11] MEDS: ASCORBIC ACID 500 MG TABLET PO SCH ×2 (09:40→17:23)
[2020-04-11] MEDS: DEXAMETHASONE SOD PHOSPHATE INJ 4 MG/1 ML VIAL IV SCH ×2 (09:40→21:16)
[2020-04-11] MEDS: PANTOPRAZOLE SODIUM 20 MG TABLET.DR PO SCH (09:40)
[2020-04-11] MEDS: HYDROXYCHLOROQUINE SULFATE 200 MG TABLET PO SCH (09:40)
[2020-04-11] MEDS: CHOLECALCIFEROL (D3) 400 UNIT TABLET PO SCH (09:40)
[2020-04-11] MEDS: ZINC SULFATE 220 MG CAPSULE PO SCH (09:40)
[2020-04-11] MEDS: ENOXAPARIN SODIUM INJ 80 MG/0.8 ML DISP.SYRIN SUBCUT SCH ×2 (09:41→21:19)
[2020-04-11] MEDS: AMLODIPINE BESYLATE 10 MG TABLET PO SCH (09:41)
[2020-04-11] MEDS: NORMAL SALINE 1000 ML 1,000 ML IV PRN (11:44)
--- NOTE | 2020-04-11 13:07 | PDOC PROGRESS REPORT ---
Subjective Progress Note for:: 04/11/20 Subjective:: MARYLU SINGH is a 69 year old male the past medical history significant for hypertension, hyperlipidemia, GERD who was admitted 04/09/2020 with acute respiratory failure with hypoxia secondary to COVID-19 pneumonia. Patient is seen on afternoon rounds. He is found resting in bed on supplemental oxygen via an HFNC at 35 L/min and 90% FiO2. Currently maintaining oxygen saturations in the low to mid 90s. Does continue to have dyspnea at rest, though, with slightly improved work of breathing. Has not been ambulatory. He continues to have nonproductive cough with pleurisy related to deep inspiration and coughing. Diarrhea has resolved. He denies fever, chills, palpitations, abdominal pain, nausea, vomiting, and diarrhea. He has no questions or concerns at this time. Reason For Visit: ACUTE RESPIRATORY FAILURE WITH HYPOXA,COVID Physical Exam Vital Signs: Temp Pulse Resp BP Pulse Ox 97.5 F 66 25 H 119/73 92 04/11/20 11:53 04/11/20 11:53 04/11/20 11:53 04/11/20 11:53 04/11/20 11:53 Pulse Oximeter Continuous Start: 04/09/20 15:38 Freq: RTQ4 Status: Active Protocol: Document 04/11/20 08:00 [facility] (Rec: 04/11/20 10:53 [facility] [id number]) Pulse Oximetry Assessment Oxygen Saturation (92-100) 93 Oxygen Flow Rate (L/min) 35 Oxygen Delivery Method High Flow Nasal Cannula Fraction of Inspired Oxygen (FIO2) 90 Equipment Usage Equipment in Use Continuous SpO2 Machine # 5 Intake & Output 04/10/20 04/11/20 04/12/20 06:59 06:59 06:59 Intake Total 250 1500 955 Output Total 400 1225 Balance -150 275 955 Weight 84 kg 84 kg General appearance: PRESENT: no acute distress, cooperative, well-developed, well-nourished - overweight Head exam: PRESENT: atraumatic, normocephalic Eye exam: PRESENT: conjunctiva pink, EOMI, PERRLA. ABSENT: scleral icterus Ear exam: PRESENT: normal external ear exam Mouth exam: PRESENT: moist, tongue midline Neck exam: ABSENT: carotid bruit, JVD, lymphadenopathy, thyromegaly Respiratory exam: PRESENT: clear to auscultation jorge, symmetrical, tachypnea, unlabored, other - HFNC, shallow respirations, pleurisy. ABSENT: rales, rhonchi, wheezes Cardiovascular exam: PRESENT: RRR. ABSENT: diastolic murmur, rubs, systolic murmur Pulses: PRESENT: normal dorsalis pedis pul Vascular exam: PRESENT: normal capillary refill GI/Abdominal exam: PRESENT: normal bowel sounds, soft. ABSENT: distended, guarding, mass, organolmegaly, rebound, tenderness Rectal exam: PRESENT: deferred Extremities exam: PRESENT: full ROM. ABSENT: calf tenderness, clubbing, pedal edema Neurological exam: PRESENT: alert, awake, oriented to person, oriented to place, oriented to time, oriented to situation, CN II-XII grossly intact. ABSENT: motor sensory deficit Psychiatric exam: PRESENT: appropriate affect, normal mood. ABSENT: homicidal ideation, suicidal ideation Skin exam: PRESENT: dry, intact, warm. ABSENT: cyanosis, rash Results Laboratory Results: 04/11/20 04:41 04/11/20 04:41 04/11/20 04/11/20 04/11/20 04:41 04:41 06:42 WBC 7.6 RBC 4.40 Hgb 13.6 Hct 38.7 MCV 88 MCH 31.0 MCHC 35.2 RDW 12.4 Plt Count 189 Sodium 137.4 Potassium 4.2 Chloride 105 Carbon Dioxide 26 Anion Gap 6 BUN 20 Creatinine 0.49 L Est GFR ( Amer) > 60 Glucose 168 H Calcium 8.9 Total Bilirubin 0.7 AST 74 H Alkaline Phosphatase 64 Total Protein 5.9 L Albumin 2.6 L Urine Color YELLOW Urine Appearance CLEAR Urine pH 6.0 Ur Specific [place] 1.021 Urine Protein 100 H Urine Glucose (UA) NEGATIVE Urine Ketones NEGATIVE Urine Blood NEGATIVE Urine Nitrite NEGATIVE Ur Leukocyte Esterase NEGATIVE Urine WBC (Auto) 1 Urine RBC (Auto) 0 04/09/20 13:44 Troponin I < 0.012 Impressions: Chest X-Ray 04/09/20 13:34 IMPRESSION: Bilateral airspace disease, pneumonia versus atelectasis. May represent an atypical infectious/ inflammatory process. Assessment and Plan - Diagnosis (1) Pneumonia due to COVID-19 virus Is this a current diagnosis for this admission?: Yes Plan: Currently on high flow nasal cannula; FiO2 90%, 35 L/min Confirmed COVID positive (04/03/2020) Ferritin 3370, LDH 840, CRP 427 D-dimer elevated to 3.05. Patient is admitted to the medical floor on continuous cardiac telemetry. He is placed on IV azithromycin x5 days. Continue Decadron 4 mg IV twice daily. D-dimer is elevated; continue full dose Lovenox. Hydroxychloroquine; 400 mg twice daily x2 doses followed by 200 mg twice daily for 6 days. We will provide supplemental oxygen as needed to maintain saturations greater than 89%. Scheduled albuterol HFA. As needed nebulizer treatments. Vitamin C, vitamin D, zinc, melatonin supplementation. Every 2 turns; encourage prone positioning. Incentive spirometer and flutter valve to bedside. (2) Acute respiratory failure with hypoxia Is this a current diagnosis for this admission?: Yes Plan: Secondary to #1. Management as above. (3) Hypertension Qualifiers: Hypertension type: essential hypertension Qualified Code(s): I10 - Esse ntial (primary) hypertension Is this a current diagnosis for this admission?: Yes Plan: Adequately controlled at present. Continue home dose amlodipine. IV hydralazine as needed for blood pressure control. Cardiac diet. (4) Hyperlipidemia Is this a current diagnosis for this admission?: Yes Plan: Home dose atorvastatin and fenofibrate. Cardiac diet. - Plan Summary Summary: Previously discussed use of hydroxychloroquine with Dr. Cary. - Time Time Spent with patient: 25-34 minutes Medications reviewed and adjusted accordingly: Yes Anticipated discharge: Home Within: Other
[2020-04-11 17:17] LABS: APPEARANCE,URINE CLEAR; BILIRUBIN,URINE NEGATIVE (NEGATIVE); COLOR,URINE YELLOW; GLUCOSE, URINE 150 mg/dL (NEGATIVE); KETONES,URINE NEGATIVE (NEGATIVE); LEUKOCYTE ESTERASE,URINE NEGATIVE (NEGATIVE); NITRITE,URINE NEGATIVE (NEGATIVE); PROTEIN,URINE 100 mg/dL (NEGATIVE); URINE SPECIFIC GRAVITY 1.024
[2020-04-11] MEDS ORDERED: HYDROXYCHLOROQUINE SULFATE 200 MG TABLET PO SCH (18:00)
[2020-04-11] MEDS: ATORVASTATIN CALCIUM 40 MG TABLET PO SCH (21:18)
[2020-04-11] MEDS: FENOFIBRATE NANOCRYSTALLIZED 48 MG TABLET PO SCH (21:18)
[2020-04-11] MEDS: MELATONIN 3 MG TABLET PO SCH (21:19)
[2020-04-11] MEDS: AZITHROMYCIN 500 MG in DEXTROSE 5%-WATER 250 ML IV SCH (21:27)
[2020-04-12] MEDS: NORMAL SALINE 1000 ML 1,000 ML IV PRN ×2 (00:33→13:53)
[2020-04-12] MEDS: ALBUTEROL SULFATE HFA (90 MCG/PUFF) 8 GM MDI IH SCH ×5 (00:33→23:34)
[2020-04-12] MEDS: PANTOPRAZOLE SODIUM 20 MG TABLET.DR PO SCH (09:29)
[2020-04-12] MEDS: AMLODIPINE BESYLATE 10 MG TABLET PO SCH (09:29)
[2020-04-12] MEDS: DEXAMETHASONE SOD PHOSPHATE INJ 4 MG/1 ML VIAL IV SCH ×2 (09:29→21:48)
[2020-04-12] MEDS: CHOLECALCIFEROL (D3) 400 UNIT TABLET PO SCH (09:29)
[2020-04-12] MEDS: ENOXAPARIN SODIUM INJ 80 MG/0.8 ML DISP.SYRIN SUBCUT SCH ×2 (09:29→21:49)
[2020-04-12] MEDS: ASCORBIC ACID 500 MG TABLET PO SCH ×2 (09:29→17:10)
[2020-04-12] MEDS: ZINC SULFATE 220 MG CAPSULE PO SCH (09:29)
[2020-04-12] MEDS: GUAIFENESIN 600 MG TABLET.SA PO SCH ×2 (09:29→21:48)
--- NOTE | 2020-04-12 11:54 | EKG REPORT ---
SEVERITY:- ABNORMAL ECG - SINUS RHYTHM INCOMPLETE RBBB AND LAFB : Confirmed by: Roberto Michel MD 12-Apr-2020 11:53:44
--- NOTE | 2020-04-12 13:38 | PDOC PROGRESS REPORT ---
Subjective Progress Note for:: 04/12/20 Subjective:: MARYLU SINGH is a 69 year old male the past medical history significant for hypertension, hyperlipidemia, GERD who was admitted 04/09/2020 with acute respiratory failure with hypoxia secondary to COVID-19 pneumonia. Patient is seen on morning rounds. He is found resting in bed on supplemental oxygen via an HFNC at 35 L/min and 80% FiO2. Currently maintaining oxygen saturations in the low to mid 90s w/ RR mid to high 20s with mild retractions and accessory muscle use. He continues to have nonproductive cough with pleurisy related to deep inspiration and coughing. Diarrhea has resolved. Fatigued and anxious today. He denies fever, chills, palpitations, abdominal pain, nausea, vomiting, and diarrhea. He has no questions or concerns at this time. Reason For Visit: ACUTE RESPIRATORY FAILURE WITH HYPOXA,COVID Physical Exam Vital Signs: Temp Pulse Resp BP Pulse Ox 97.7 F 72 19 135/78 H 93 04/12/20 11:21 04/12/20 11:21 04/12/20 11:21 04/12/20 11:21 04/12/20 11:21 Pulse Oximeter Continuous Start: 04/09/20 15:38 Freq: RTQ4 Status: Active Protocol: Document 04/12/20 08:00 [facility] (Rec: 04/12/20 12:47 [facility] [id number]) Pulse Oximetry Assessment Oxygen Saturation (92-100) 94 Oxygen Flow Rate (L/min) 35 Oxygen Delivery Method High Flow Nasal Cannula Fraction of Inspired Oxygen (FIO2) 90 Equipment Usage Equipment in Use Continuous SpO2 Machine # [id number] Intake & Output 04/11/20 04/12/20 04/13/20 06:59 06:59 06:59 Intake Total 1500 2166 360 Output Total 1225 2160 600 Balance 275 6 -240 Weight 84 kg 81.9 kg General appearance: PRESENT: no acute distress, cooperative, well-developed, well-nourished - Overweight Head exam: PRESENT: atraumatic, normocephalic Eye exam: PRESENT: conjunctiva pink, EOMI, PERRLA. ABSENT: scleral icterus Mouth exam: PRESENT: moist, tongue midline Respiratory exam: PRESENT: accessory muscle use, retraction, rhonchi - Bibasilar, symmetrical, tachypnea, other - HFNC. ABSENT: rales, wheezes Cardiovascular exam: PRESENT: RRR. ABSENT: diastolic murmur, rubs, systolic murmur Pulses: PRESENT: normal dorsalis pedis pul Vascular exam: PRESENT: normal capillary refill GI/Abdominal exam: PRESENT: normal bowel sounds, soft. ABSENT: distended, guarding, mass, organolmegaly, rebound, tenderness Rectal exam: PRESENT: deferred Extremities exam: PRESENT: full ROM. ABSENT: calf tenderness, clubbing, pedal edema Neurological exam: PRESENT: alert, awake, oriented to person, oriented to place, oriented to time, oriented to situation, CN II-XII grossly intact. ABSENT: motor sensory deficit Psychiatric exam: PRESENT: anxious, appropriate affect, normal mood. ABSENT: homicidal ideation, suicidal ideation Skin exam: PRESENT: dry, intact, warm. ABSENT: cyanosis, rash Results Laboratory Results: 04/11/20 04:41 04/11/20 04:41 04/11/20 16:53 Urine Color YELLOW Urine Appearance CLEAR Urine pH 6.0 Ur Specific [place] 1.024 Urine Protein 100 H Urine Glucose (UA) 150 H Urine Ketones NEGATIVE Urine Blood NEGATIVE Urine Nitrite NEGATIVE Ur Leukocyte Esterase NEGATIVE Urine WBC (Auto) 2 Urine RBC (Auto) 1 04/09/20 13:44 Troponin I < 0.012 Impressions: Chest X-Ray 04/09/20 13:34 IMPRESSION: Bilateral airspace disease, pneumonia versus atelectasis. May represent an atypical infectious/ inflammatory process. Assessment and Plan - Diagnosis (1) Pneumonia due to COVID-19 virus Is this a current diagnosis for this admission?: Yes Plan: Currently on high flow nasal cannula; FiO2 80%, 35 L/min Confirmed COVID positive (04/03/2020) Ferritin 3370, LDH 840, CRP 427 D-dimer elevated to 3.05. Received Plaquenil x3 doses; have had to discontinue due to QTC 521 Patient is admitted to the medical floor on continuous cardiac telemetry. He is placed on IV azithromycin x5 days. Day #3 Hydroxychloroquine discontinued. Approved for Remdesivir; first dose this afternoon ([facility] transport [facility]) Continue Decadron 4 mg IV twice daily. Continue full dose Lovenox. We will provide supplemental oxygen as needed to maintain saturations greater than 89%. Scheduled albuterol HFA. As needed nebulizer treatments. Vitamin C, vitamin D, zinc, melatonin supplementation. Every 2 turns; encourage prone positioning. Have asked nursing to encourage prone positioning. Incentive spirometer and flutter valve to bedside. (2) Acute respiratory failure with hypoxia Is this a current diagnosis for this admission?: Yes Plan: Secondary to #1. Management as above. (3) Hypertension Qualifiers: Hypertension type: essential hypertension Qualified Code(s): I10 - Essential (primary) hypertension Is this a current diagnosis for this admission?: Yes Plan: Adequately controlled at present. Continue home dose amlodipine. IV hydralazine as needed for blood pressure control. Cardiac diet. (4) Hyperlipidemia Is this a current diagnosis for this admission?: Yes Plan: Home dose atorvastatin and fenofibrate. Cardiac diet. - Plan Summary Summary: Updated patient's daughter, Darling, by phone today. - Time Time Spent with patient: 35 or more minutes Medications reviewed and adjusted accordingly: Yes Anticipated discharge: Home with Homehealth Within: Other
[2020-04-12] MEDS ORDERED: REMDESIVIR (EUA) 200 MG in NORMAL SALINE 250 ML IV ONE (18:00)
[2020-04-12] MEDS: AZITHROMYCIN 500 MG in DEXTROSE 5%-WATER 250 ML IV SCH (21:45)
[2020-04-12] MEDS: ATORVASTATIN CALCIUM 40 MG TABLET PO SCH (21:48)
[2020-04-12] MEDS: MELATONIN 3 MG TABLET PO SCH (21:48)
[2020-04-12] MEDS: FENOFIBRATE NANOCRYSTALLIZED 48 MG TABLET PO SCH (21:48)
[2020-04-13 05:44] LABS: HEMATOCRIT 40.5 % (37.9-51.0); HEMOGLOBIN 14.4 g/dL (13.5-17.0); MEAN CORPUSCULAR HEMOGLOBIN 31.6 pg (27.0-33.4); MEAN CORPUSCULAR HGB CONC 35.7 g/dL (32.0-36.0); MEAN CORPUSCULAR VOLUME 89 fl (80-97); PLATELET COUNT 260 10^3/uL (150-450); RED BLOOD COUNT 4.57 10^6/uL (4.35-5.55); RED CELL DISTRIBUTION WIDTH 12.6 % (11.5-14.0); WHITE BLOOD COUNT 8.7 10^3/uL (4.0-10.5)
[2020-04-13 06:04] LABS: ALBUMIN 2.8 g/dL (3.5-5.0); ALKALINE PHOSPHATASE 76 U/L (38-126); ANION GAP 5 (5-19); ASPARTATE AMINO TRANSFERASE 73 U/L (17-59); BILIRUBIN,TOTAL 0.6 mg/dL (0.2-1.3); BLOOD UREA NITROGEN 16 mg/dL (7-20); CALCIUM 9.2 mg/dL (8.4-10.2); CARBON DIOXIDE 26 mmol/L (22-30); CHLORIDE 108 mmol/L (98-107); GLUCOSE 143 mg/dL (75-110); POTASSIUM 4.4 mmol/L (3.6-5.0); TOTAL PROTEIN 6.5 g/dL (6.3-8.2)
[2020-04-13 06:07] LABS: ABSOLUTE LYMPHOCYTES# (MANUAL) 0.6 10^3/uL (0.5-4.7); ABSOLUTE MONOCYTES # (MANUAL) 0.3 10^3/uL (0.1-1.4); BASOPHILS % (MANUAL) 0 % (0-2); EOSINOPHILS % (MANUAL) 0 % (0-6); LYMPHOCYTES % (MANUAL) 7 % (13-45); MONOCYTES % (MANUAL) 4 % (3-13); SEGMENTED NEUTROPHILS % (MAN) 89 % (42-78); TOTAL CELLS COUNTED 100
[2020-04-13 06:08] LABS: PLATELET COMMENT ADEQUATE; RBC MORPHOLOGY COMMENT NORMO-CYTIC/CHROMIC
[2020-04-13] MEDS: ASCORBIC ACID 500 MG TABLET PO SCH ×2 (09:07→17:01)
[2020-04-13] MEDS: GUAIFENESIN 600 MG TABLET.SA PO SCH ×2 (09:07→22:04)
[2020-04-13] MEDS: CHOLECALCIFEROL (D3) 400 UNIT TABLET PO SCH (09:07)
[2020-04-13] MEDS: DEXAMETHASONE SOD PHOSPHATE INJ 4 MG/1 ML VIAL IV SCH ×2 (09:07→22:04)
[2020-04-13] MEDS: AMLODIPINE BESYLATE 10 MG TABLET PO SCH (09:07)
[2020-04-13] MEDS: ZINC SULFATE 220 MG CAPSULE PO SCH (09:07)
[2020-04-13] MEDS: ALBUTEROL SULFATE HFA (90 MCG/PUFF) 8 GM MDI IH SCH ×3 (09:07→17:01)
[2020-04-13] MEDS: PANTOPRAZOLE SODIUM 20 MG TABLET.DR PO SCH (09:07)
[2020-04-13] MEDS: ENOXAPARIN SODIUM INJ 80 MG/0.8 ML DISP.SYRIN SUBCUT SCH ×2 (09:08→22:04)
[2020-04-13] MEDS: NORMAL SALINE 1000 ML 1,000 ML IV PRN (09:09)
[2020-04-13] MEDS ORDERED: HYDROXYZINE PAMOATE 25 MG CAPSULE PO PRN (12:09)
--- NOTE | 2020-04-13 12:14 | PDOC PROGRESS REPORT ---
Subjective Progress Note for:: 04/13/20 Subjective:: MARYLU SINGH is a 69 year old male the past medical history significant for hypertension, hyperlipidemia, GERD who was admitted 04/09/2020 with acute respiratory failure with hypoxia secondary to COVID-19 pneumonia. Patient is seen on morning rounds. He is found resting in bed on supplemental oxygen via an HFNC at 35 L/min and 70% FiO2. Currently maintaining oxygen saturations in the low to mid 90s; desats to high 70s with minimal activity. Decreased work of breathing, pleurisy and cough today. Primary complaint is profound fatigue. Noted to be somewhat anxious today. He denies fever, chills, palpitations, abdominal pain, nausea, vomiting, and diarrhea. He has no questions or concerns at this time. Reason For Visit: ACUTE RESPIRATORY FAILURE WITH HYPOXA,COVID Physical Exam Vital Signs: Temp Pulse Resp BP Pulse Ox 98.1 F 73 20 130/75 H 91 L 04/13/20 11:42 04/13/20 11:42 04/13/20 11:42 04/13/20 11:42 04/13/20 11:42 Pulse Oximeter Continuous Start: 04/09/20 15:38 Freq: RTQ4 Status: Active Protocol: Document 04/13/20 11:37 [facility] (Rec: 04/13/20 11:37 [facility] [id number]) Pulse Oximetry Assessment Oxygen Saturation (92-100) 94 Oxygen Flow Rate (L/min) 35 Oxygen Delivery Method High Flow Nasal Cannula Fraction of Inspired Oxygen (FIO2) 70 Equipment Usage Equipment in Use Continuous SpO2 Machine # [id number] Intake & Output 04/12/20 04/13/20 04/14/20 06:59 06:59 06:59 Intake Total 2166 3846 Output Total 2160 3590 Balance 6 1396 Weight 81.9 kg 82.3 kg General appearance: PRESENT: no acute distress, cooperative, well-developed, well-nourished Head exam: PRESENT: atraumatic, normocephalic Eye exam: PRESENT: conjunctiva pink, EOMI, PERRLA. ABSENT: scleral icterus Mouth exam: PRESENT: moist, tongue midline Respiratory exam: PRESENT: clear to auscultation jorge, decreased breath sounds - Throughout, symmetrical, tachypnea - shallow, other - HFNC. ABSENT: rales, rhonchi, wheezes Cardiovascular exam: PRESENT: RRR. ABSENT: diastolic murmur, rubs, systolic murmur Vascular exam: PRESENT: normal capillary refill Extremities exam: PRESENT: full ROM. ABSENT: calf tenderness, clubbing, pedal edema Musculoskeletal exam: PRESENT: ambulatory Neurological exam: PRESENT: alert, awake, oriented to person, oriented to place, oriented to time, oriented to situation, CN II-XII grossly intact. ABSENT: motor sensory deficit Psychiatric exam: PRESENT: anxious, appropriate affect, normal mood. ABSENT: homicidal ideation, suicidal ideation Skin exam: PRESENT: dry, intact, warm. ABSENT: cyanosis, rash Results Laboratory Results: 04/13/20 05:31 04/13/20 05:31 04/13/20 04/13/20 05:31 05:31 WBC 8.7 RBC 4.57 Hgb 14.4 Hct 40.5 MCV 89 MCH 31.6 MCHC 35.7 RDW 12.6 Plt Count 260 Seg Neutrophils % Not Reportable Sodium 138.7 Potassium 4.4 Chloride 108 H Carbon Dioxide 26 Anion Gap 5 BUN 16 Creatinine 0.55 Est GFR ( Amer) > 60 Glucose 143 H Calcium 9.2 Ferritin 926.00 H Total Bilirubin 0.6 AST 73 H Alkaline Phosphatase 76 Total Protein 6.5 Albumin 2.8 L 04/09/20 13:44 Troponin I < 0.012 Impressions: Chest X-Ray 04/09/20 13:34 IMPRESSION: Bilateral airspace disease, pneumonia versus atelectasis. May represent an atypical infectious/ inflammatory process. Assessment and Plan - Diagnosis (1) Pneumonia due to COVID-19 virus Is this a current diagnosis for this admission?: Yes Plan: Currently on high flow nasal cannula; FiO2 70%, 35 L/min Confirmed COVID positive (04/03/2020) Ferritin 3370-> 926 D-dimer 3.05-> 2.78. Baseline LDH 840, CRP 427 Received hydroxychloroquine x3 doses; have had to discontinue due to QTC 521 Patient is admitted to the medical floor on continuous cardiac telemetry. He is placed on IV azithromycin x5 days. Day #4 of 5 Continue Remdesivir. Continue Decadron 4 mg IV twice daily. Continue full dose Lovenox. We will provide supplemental oxygen as needed to maintain saturations greater than 89%. Scheduled albuterol HFA. As needed nebulizer treatments. Vitamin C, vitamin D, zinc, melatonin supplementation. Every 2 turns; encourage prone positioning. Have asked nursing to encourage prone positioning. Incentive spirometer and flutter valve to bedside. (2) Acute respiratory failure with hypoxia Is this a current diagnosis for this admission?: Yes Plan: Secondary to #1. Management as above. (3) Hypertension Qualifiers: Hypertension type: essential hypertension Qualified Code(s): I10 - Essential (primary) hypertension Is this a current diagnosis for this admission?: Yes Plan: Adequately controlled at present. Continue home dose amlodipine. IV hydralazine as needed for blood pressure control. Cardiac diet. (4) Hyperlipidemia Is this a current diagnosis for this admission?: Yes Plan: Home dose atorvastatin and fenofibrate. Cardiac diet. - Time Time Spent with patient: 35 or more minutes Medications reviewed and adjusted accordingly: Yes Anticipated discharge: Home Within: Other
[2020-04-13] MEDS: REMDESIVIR (EUA) 100 MG in NORMAL SALINE 250 ML IV SCH (20:11)
[2020-04-13] MEDS: MELATONIN 3 MG TABLET PO SCH (22:04)
[2020-04-13] MEDS: FENOFIBRATE NANOCRYSTALLIZED 48 MG TABLET PO SCH (22:04)
[2020-04-13] MEDS: ATORVASTATIN CALCIUM 40 MG TABLET PO SCH (22:04)
[2020-04-13] MEDS: AZITHROMYCIN 500 MG in DEXTROSE 5%-WATER 250 ML IV SCH (22:06)
[2020-04-14] MEDS: ALBUTEROL SULFATE HFA (90 MCG/PUFF) 8 GM MDI IH SCH ×5 (00:30→23:23)
[2020-04-14] MEDS: NORMAL SALINE 1000 ML 1,000 ML IV PRN ×2 (02:15→16:32)
[2020-04-14 06:44] LABS: HEMATOCRIT 42.5 % (37.9-51.0); HEMOGLOBIN 14.5 g/dL (13.5-17.0); MEAN CORPUSCULAR HEMOGLOBIN 30.5 pg (27.0-33.4); MEAN CORPUSCULAR HGB CONC 34.1 g/dL (32.0-36.0); MEAN CORPUSCULAR VOLUME 89 fl (80-97); PLATELET COUNT 267 10^3/uL (150-450); RED BLOOD COUNT 4.75 10^6/uL (4.35-5.55); RED CELL DISTRIBUTION WIDTH 12.9 % (11.5-14.0); WHITE BLOOD COUNT 9.2 10^3/uL (4.0-10.5)
[2020-04-14] MEDS: ENOXAPARIN SODIUM INJ 80 MG/0.8 ML DISP.SYRIN SUBCUT SCH ×2 (09:31→21:12)
[2020-04-14] MEDS: DEXAMETHASONE SOD PHOSPHATE INJ 4 MG/1 ML VIAL IV SCH ×2 (09:31→21:11)
[2020-04-14] MEDS: ASCORBIC ACID 500 MG TABLET PO SCH ×2 (09:32→18:00)
[2020-04-14] MEDS: CHOLECALCIFEROL (D3) 400 UNIT TABLET PO SCH (09:32)
[2020-04-14] MEDS: ZINC SULFATE 220 MG CAPSULE PO SCH (09:32)
[2020-04-14] MEDS: GUAIFENESIN 600 MG TABLET.SA PO SCH ×2 (09:32→21:12)
[2020-04-14] MEDS: PANTOPRAZOLE SODIUM 20 MG TABLET.DR PO SCH (09:32)
[2020-04-14] MEDS: AMLODIPINE BESYLATE 10 MG TABLET PO SCH (09:32)
[2020-04-14 09:46] LABS: APPEARANCE,URINE CLEAR; BILIRUBIN,URINE NEGATIVE (NEGATIVE); COLOR,URINE YELLOW; GLUCOSE, URINE NEGATIVE (NEGATIVE); KETONES,URINE NEGATIVE (NEGATIVE); LEUKOCYTE ESTERASE,URINE NEGATIVE (NEGATIVE); NITRITE,URINE NEGATIVE (NEGATIVE); PROTEIN,URINE NEGATIVE (NEGATIVE); URINE SPECIFIC GRAVITY 1.011; UROBILINOGEN,URINE NEGATIVE mg/dL (<2.0)
[2020-04-14] MEDS ORDERED: LISINOPRIL 10 MG TABLET PO SCH (10:00)
--- NOTE | 2020-04-14 11:22 | PDOC PROGRESS REPORT ---
Subjective Progress Note for:: 04/14/20 Subjective:: MARYLU SINGH is a 69 year old male the past medical history significant for hypertension, hyperlipidemia, GERD who was admitted 04/09/2020 with acute respiratory failure with hypoxia secondary to COVID-19 pneumonia. Patient is seen on morning rounds. He is found resting in bed on supplemental oxygen via an HFNC at 35 L/min and 85% FiO2. Currently maintaining oxygen saturations in the mid to high 90s. Decreased work of breathing, pleurisy and cough today. Continued profound fatigue. Remains somewhat anxious today. He denies fever, chills, palpitations, abdominal pain, nausea, vomiting, and diarrhea. He has no questions or concerns at this time. Reason For Visit: ACUTE RESPIRATORY FAILURE WITH HYPOXA,COVID Physical Exam Vital Signs: Temp Pulse Resp BP Pulse Ox 97.6 F 68 18 142/98 H 94 04/14/20 07:39 04/14/20 07:39 04/14/20 08:00 04/14/20 07:39 04/14/20 08:00 Pulse Oximeter Continuous Start: 04/09/20 15:38 Freq: RTQ4 Status: Active Protocol: Document 04/14/20 08:00 LDA (Rec: 04/14/20 09:45 LDA [email or web address]) Pulse Oximetry Assessment Oxygen Saturation (92-100) 94 Oxygen Flow Rate (L/min) 35 Oxygen Delivery Method High Flow Nasal Cannula Fraction of Inspired Oxygen (FIO2) 80 Equipment Usage Equipment in Use Continuous SpO2 Machine # [id number] Intake & Output 04/13/20 04/14/20 04/15/20 06:59 06:59 06:59 Intake Total 3846 3736 Output Total 2450 2750 Balance 1396 986 Weight 82.3 kg 83.1 kg General appearance: PRESENT: no acute distress, cooperative, well-developed, well-nourished Head exam: PRESENT: atraumatic, normocephalic Eye exam: PRESENT: conjunctiva pink, EOMI, PERRLA. ABSENT: scleral icterus Mouth exam: PRESENT: moist, tongue midline Respiratory exam: PRESENT: clear to auscultation jorge, decreased breath sounds - Throughout, symmetrical, tachypnea - Shallow, other - HFNC. ABSENT: rales, rhonchi, wheezes Cardiovascular exam: PRESENT: RRR, other - Occasional PVCs by telemetry. ABSENT: diastolic murmur, rubs, systolic murmur Pulses: PRESENT: normal dorsalis pedis pul Vascular exam: PRESENT: normal capillary refill Extremities exam: PRESENT: full ROM. ABSENT: calf tenderness, clubbing, pedal edema Neurological exam: PRESENT: alert, awake, oriented to person, oriented to place, oriented to time, oriented to situation, CN II-XII grossly intact. ABSENT: motor sensory deficit Psychiatric exam: PRESENT: appropriate affect, normal mood. ABSENT: homicidal ideation, suicidal ideation Skin exam: PRESENT: dry, intact, warm. ABSENT: cyanosis, rash Results Laboratory Results: 04/14/20 06:10 04/13/20 05:31 04/14/20 04/14/20 06:10 09:10 WBC 9.2 RBC 4.75 Hgb 14.5 Hct 42.5 MCV 89 MCH 30.5 MCHC 34.1 RDW 12.9 Plt Count 267 Urine Color YELLOW Urine Appearance CLEAR Urine pH 6.0 Ur Specific [place] 1.011 Urine Protein NEGATIVE Urine Glucose (UA) NEGATIVE Urine Ketones NEGATIVE Urine Blood NEGATIVE Urine Nitrite NEGATIVE Ur Leukocyte Esterase NEGATIVE Urine WBC (Auto) 0 Urine RBC (Auto) 0 04/09/20 13:44 Troponin I < 0.012 Impressions: Chest X-Ray 04/09/20 13:34 IMPRESSION: Bilateral airspace disease, pneumonia versus atelectasis. May represent an atypical infectious/ inflammatory process. Assessment and Plan - Diagnosis (1) Pneumonia due to COVID-19 virus Is this a current diagnosis for this admission?: Yes Plan: Currently on high flow nasal cannula; FiO2 70%, 35 L/min Confirmed COVID positive (04/03/2020) Ferritin 3370-> 926 D-dimer 3.05-> 2.78. Baseline LDH 840, CRP 427 Received hydroxychloroquine x3 doses; have had to discontinue due to QTC 521 Patient is admitted to the medical floor on continuous cardiac telemetry. He is placed on IV azithromycin x5 days. Day #5 of 5 Continue Remdesivir. Continue Decadron 4 mg IV twice daily. Continue full dose Lovenox. We will provide supplemental oxygen as needed to maintain saturations greater than 89%. Scheduled albuterol HFA. As needed nebulizer treatments. Vitamin C, vitamin D, zinc, melatonin supplementation. Every 2 turns; encourage prone positioning. Have asked nursing to encourage prone positioning. Incentive spirometer and flutter valve to bedside. (2) Acute respiratory failure with hypoxia Is this a current diagnosis for this admission?: Yes Plan: Secondary to #1. Management as above. (3) Hypertension Qualifiers: Hypertension type: essential hypertension Qualified Code(s): I10 - Essential (primary) hypertension Is this a current diagnosis for this admission?: Yes Plan: elevated HTN w/ frequent PVC by tele. Continue home dose amlodipine. Start low dose metoprolol IV hydralazine as needed for blood pressure control. Cardiac diet. (4) Hyperlipidemia Is this a current diagnosis for this admission?: Yes Plan: Home dose atorvastatin and fenofibrate. Cardiac diet. - Time Time Spent with patient: 35 or more minutes Medications reviewed and adjusted accordingly: Yes Anticipated discharge: Home Within: Other - evidence of improvement; d/c pending oxygenation needs
[2020-04-14] MEDS: ATORVASTATIN CALCIUM 40 MG TABLET PO SCH (21:12)
[2020-04-14] MEDS: MELATONIN 3 MG TABLET PO SCH (21:12)
[2020-04-14] MEDS: METOPROLOL TARTRATE 25 MG TABLET PO SCH (21:12)
[2020-04-14] MEDS: REMDESIVIR (EUA) 100 MG in NORMAL SALINE 250 ML IV SCH (21:13)
[2020-04-14] MEDS: FENOFIBRATE NANOCRYSTALLIZED 48 MG TABLET PO SCH (21:13)
[2020-04-14] MEDS: AZITHROMYCIN 500 MG in DEXTROSE 5%-WATER 250 ML IV SCH (23:22)
[2020-04-15] MEDS: ALBUTEROL SULFATE HFA (90 MCG/PUFF) 8 GM MDI IH SCH ×3 (05:43→17:19)
[2020-04-15 06:04] LABS: ANION GAP 7 (5-19); BLOOD UREA NITROGEN 20 mg/dL (7-20); CALCIUM 9.3 mg/dL (8.4-10.2); CARBON DIOXIDE 24 mmol/L (22-30); CHLORIDE 107 mmol/L (98-107); GLUCOSE 131 mg/dL (75-110); POTASSIUM 4.7 mmol/L (3.6-5.0)
[2020-04-15] MEDS: PANTOPRAZOLE SODIUM 20 MG TABLET.DR PO SCH (09:13)
[2020-04-15] MEDS: AMLODIPINE BESYLATE 10 MG TABLET PO SCH (09:13)
[2020-04-15] MEDS: METOPROLOL TARTRATE 25 MG TABLET PO SCH ×2 (09:13→23:20)
[2020-04-15] MEDS: GUAIFENESIN 600 MG TABLET.SA PO SCH ×2 (09:14→23:17)
[2020-04-15] MEDS: DEXAMETHASONE SOD PHOSPHATE INJ 4 MG/1 ML VIAL IV SCH ×3 (09:14→23:33)
[2020-04-15] MEDS: ENOXAPARIN SODIUM INJ 80 MG/0.8 ML DISP.SYRIN SUBCUT SCH (09:14)
[2020-04-15] MEDS: ASCORBIC ACID 500 MG TABLET PO SCH ×2 (09:14→17:18)
[2020-04-15] MEDS: CHOLECALCIFEROL (D3) 400 UNIT TABLET PO SCH (09:14)
[2020-04-15] MEDS: ZINC SULFATE 220 MG CAPSULE PO SCH (09:14)
[2020-04-15] MEDS: NORMAL SALINE 1000 ML 1,000 ML IV PRN ×2 (11:00→23:38)
--- NOTE | 2020-04-15 16:43 | PDOC PROGRESS REPORT ---
Subjective Progress Note for:: 04/15/20 Subjective:: MARYLU SINGH is a 69 year old male the past medical history significant for hypertension, hyperlipidemia, GERD who was admitted 04/09/2020 with acute respiratory failure with hypoxia secondary to COVID-19 pneumonia. Patient is seen on afternoon rounds. He is found resting in bed on supplemental oxygen via an HFNC at 30 L/min and 60% FiO2. Currently maintaining oxygen saturations in the mid to high 90s. Decreased work of breathing, pleurisy and cough today. Continued fatigue, though also improved. Sat up to the recliner today. He denies fever, chills, palpitations, abdominal pain, nausea, vomiting, and diarrhea. He has no questions or concerns at this time. Reason For Visit: ACUTE RESPIRATORY FAILURE WITH HYPOXA,COVID Physical Exam Vital Signs: Temp Pulse Resp BP Pulse Ox 98.3 F 61 20 132/80 H 96 04/15/20 16:12 04/15/20 16:12 04/15/20 11:25 04/15/20 16:12 04/15/20 16:12 Pulse Oximeter Continuous Start: 04/09/20 15:38 Freq: RTQ4 Status: Active Protocol: Document 04/15/20 12:10 NSM (Rec: 04/15/20 13:49 NSM [id number]) Pulse Oximetry Assessment Oxygen Saturation (92-100) 97 Oxygen Flow Rate (L/min) 30 Oxygen Delivery Method High Flow Nasal Cannula Fraction of Inspired Oxygen (FIO2) 60 Equipment Usage Equipment in Use Continuous SpO2 Machine # N5 Intake & Output 04/14/20 04/15/20 04/16/20 06:59 06:59 06:59 Intake Total 3736 4320 96 Output Total 3760 5020 Balance 986 -700 96 Weight 83.1 kg 78.3 kg General appearance: PRESENT: no acute distress, cooperative, well-developed, well-nourished Head exam: PRESENT: atraumatic, normocephalic Eye exam: PRESENT: conjunctiva pink, EOMI, PERRLA. ABSENT: scleral icterus Mouth exam: PRESENT: moist, tongue midline Respiratory exam: PRESENT: clear to auscultation jorge, symmetrical, unlabored, other - HFNC. ABSENT: rales, rhonchi, wheezes Cardiovascular exam: PRESENT: RRR. ABSENT: diastolic murmur, rubs, systolic murmur Pulses: PRESENT: normal dorsalis pedis pul Vascular exam: PRESENT: normal capillary refill Extremities exam: PRESENT: full ROM. ABSENT: calf tenderness, clubbing, pedal edema Neurological exam: PRESENT: alert, awake, oriented to person, oriented to place, oriented to time, oriented to situation, CN II-XII grossly intact. ABSENT: motor sensory deficit Psychiatric exam: PRESENT: appropriate affect, normal mood. ABSENT: homicidal ideation, suicidal ideation Skin exam: PRESENT: dry, intact, warm. ABSENT: cyanosis, rash Results Laboratory Results: 04/14/20 06:10 04/15/20 05:20 04/15/20 05:20 Sodium 137.9 Potassium 4.7 Chloride 107 Carbon Dioxide 24 Anion Gap 7 BUN 20 Creatinine 0.55 Est GFR ( Amer) > 60 Glucose 131 H Calcium 9.3 Ferritin 745.00 H 04/09/20 14:36 Blood Blood Culture - Final NO GROWTH IN 5 DAYS 04/09/20 13:44 Blood Blood Culture - Final NO GROWTH IN 5 DAYS 04/09/20 13:44 Troponin I < 0.012 Impressions: Chest X-Ray 04/09/20 13:34 IMPRESSION: Bilateral airspace disease, pneumonia versus atelectasis. May represent an atypical infectious/ inflammatory process. Assessment and Plan - Diagnosis (1) Pneumonia due to COVID-19 virus Is this a current diagnosis for this admission?: Yes Plan: Currently on high flow nasal cannula; FiO2 70%, 35 L/min Confirmed COVID positive (04/03/2020) Ferritin 3370-> 926-> 745 D-dimer 3.05-> 2.78-> 2.12 Baseline LDH 840, CRP 427 Received hydroxychloroquine x3 doses; have had to discontinue due to QTC 521 Completed full course of Azithromycin Patient is admitted to the medical floor on continuous cardiac telemetry. Continue Remdesivir. Continue Decadron; decreased dose to 6mg/daily in divided doses Continue full dose Lovenox. We will provide supplemental oxygen as needed to maintain saturations greater th an 89%. Scheduled albuterol HFA. As needed nebulizer treatments. Vitamin C, vitamin D, zinc, melatonin supplementation. Every 2 turns; encourage prone positioning. Have asked nursing to encourage p henri positioning. Incentive spirometer and flutter valve to bedside. (2) Acute respiratory failure with hypoxia Is this a current diagnosis for this admission?: Yes Plan: Secondary to #1. Management as above. (3) Hypertension Qualifiers: Hypertension type: essential hypertension Qualified Code(s): I10 - Essential (primary) hypertension Is this a current diagnosis for this admission?: Yes Plan: Improved elevated HTN w/ frequent PVC by tele. Continue home dose amlodipine. Continue low dose metoprolol IV hydralazine as needed for blood pressure control. Cardiac diet. (4) Hyperlipidemia Is this a current diagnosis for this admission?: Yes Plan: Home dose atorvastatin and fenofibrate. Cardiac diet. - Time Time Spent with patient: 35 or more minutes Medications reviewed and adjusted accordingly: Yes Anticipated discharge: Home Within: Other - >4 days
[2020-04-15] MEDS ORDERED: DEXAMETHASONE SOD PHOSPHATE INJ 4 MG/1 ML VIAL IV SCH (22:00)
[2020-04-15] MEDS: ATORVASTATIN CALCIUM 40 MG TABLET PO SCH (23:17)
[2020-04-15] MEDS: MELATONIN 3 MG TABLET PO SCH (23:17)
[2020-04-15] MEDS: FENOFIBRATE NANOCRYSTALLIZED 48 MG TABLET PO SCH (23:17)
[2020-04-15] MEDS: REMDESIVIR (EUA) 100 MG in NORMAL SALINE 250 ML IV SCH (23:34)
[2020-04-16] MEDS: REMDESIVIR (EUA) 100 MG in NORMAL SALINE 250 ML IV SCH ×2 (03:16→20:49)
[2020-04-16 05:30] LABS: HEMATOCRIT 44.1 % (37.9-51.0); HEMOGLOBIN 14.9 g/dL (13.5-17.0); MEAN CORPUSCULAR HEMOGLOBIN 30.7 pg (27.0-33.4); MEAN CORPUSCULAR HGB CONC 33.8 g/dL (32.0-36.0); MEAN CORPUSCULAR VOLUME 91 fl (80-97); PLATELET COUNT 287 10^3/uL (150-450); RED BLOOD COUNT 4.85 10^6/uL (4.35-5.55); RED CELL DISTRIBUTION WIDTH 12.8 % (11.5-14.0); WHITE BLOOD COUNT 10.7 10^3/uL (4.0-10.5)
[2020-04-16] MEDS: DEXAMETHASONE SOD PHOSPHATE INJ 4 MG/1 ML VIAL IV SCH ×3 (06:08→21:02)
[2020-04-16] MEDS: ALBUTEROL SULFATE HFA (90 MCG/PUFF) 8 GM MDI IH SCH ×4 (06:09→17:15)
[2020-04-16] MEDS: ENOXAPARIN SODIUM INJ 80 MG/0.8 ML DISP.SYRIN SUBCUT SCH ×3 (10:23→21:01)
[2020-04-16] MEDS: METOPROLOL TARTRATE 25 MG TABLET PO SCH ×2 (10:24→21:02)
[2020-04-16] MEDS: ZINC SULFATE 220 MG CAPSULE PO SCH (10:24)
[2020-04-16] MEDS: CHOLECALCIFEROL (D3) 400 UNIT TABLET PO SCH (10:24)
[2020-04-16] MEDS: PANTOPRAZOLE SODIUM 20 MG TABLET.DR PO SCH (10:24)
[2020-04-16] MEDS: AMLODIPINE BESYLATE 10 MG TABLET PO SCH (10:24)
[2020-04-16] MEDS: ASCORBIC ACID 500 MG TABLET PO SCH ×2 (10:24→17:14)
[2020-04-16] MEDS: GUAIFENESIN 600 MG TABLET.SA PO SCH ×2 (10:24→21:01)
[2020-04-16] MEDS: NORMAL SALINE 1000 ML 1,000 ML IV PRN (10:37)
--- NOTE | 2020-04-16 18:13 | PDOC PROGRESS REPORT ---
Subjective Progress Note for:: 04/16/20 Subjective:: Patient states that he feels better today Reason For Visit: ACUTE RESPIRATORY FAILURE WITH HYPOXA,COVID Physical Exam Vital Signs: Temp Pulse Resp BP Pulse Ox 97.7 F 58 L 16 141/83 H 96 04/16/20 15:42 04/16/20 15:42 04/16/20 15:42 04/16/20 15:42 04/16/20 16:34 Pulse Oximeter Continuous Start: 04/09/20 15:38 Freq: RTQ4 Status: Active Protocol: Document 04/16/20 16:34 NSM (Rec: 04/16/20 16:44 NSM [email or web address]) Pulse Oximetry Assessment Oxygen Saturation (92-100) 96 Oxygen Flow Rate (L/min) 3 Oxygen Delivery Method Nasal Cannula Fraction of Inspired Oxygen (FIO2) 32 Equipment Usage Equipment in Use Continuous SpO2 Machine # N5 Intake & Output 04/15/20 04/16/20 04/17/20 06:59 06:59 06:59 Intake Total 4320 1876 1174 Output Total 5023 2480 1475 Balance -700 -1949 -139 Weight 78.3 kg 78.1 kg General appearance: PRESENT: no acute distress, cooperative, well-developed, well-nourished Head exam: PRESENT: atraumatic Eye exam: PRESENT: conjunctiva pink Mouth exam: PRESENT: moist, tongue midline Neck exam: ABSENT: JVD Respiratory exam: PRESENT: clear to auscultation jorge - Breath sounds coarse, symmetrical, unlabored. ABSENT: rales, rhonchi, wheezes Cardiovascular exam: PRESENT: RRR, +S1, +S2 Pulses: PRESENT: normal radial pulses GI/Abdominal exam: PRESENT: normal bowel sounds, soft. ABSENT: distended, tenderness Rectal exam: PRESENT: deferred Extremities exam: PRESENT: full ROM. ABSENT: calf tenderness, pedal edema Musculoskeletal exam: PRESENT: ambulatory Neurological exam: PRESENT: alert, awake, oriented to person, oriented to place, oriented to time, oriented to situation Psychiatric exam: PRESENT: appropriate affect, normal mood. ABSENT: agitated, anxious Skin exam: PRESENT: dry, warm Results Laboratory Results: 04/16/20 04:37 04/15/20 05:20 04/16/20 04:37 WBC 10.7 H RBC 4.85 Hgb 14.9 Hct 44.1 MCV 91 MCH 30.7 MCHC 33.8 RDW 12.8 Plt Count 287 04/09/20 13:44 Troponin I < 0.012 Impressions: Chest X-Ray 04/09/20 13:34 IMPRESSION: Bilateral airspace disease, pneumonia versus atelectasis. May represent an atypical infectious/ inflammatory process. Assessment and Plan - Diagnosis (1) Pneumonia due to COVID-19 virus Is this a current diagnosis for this admission?: Yes Plan: Confirmed SARS-CoV-2 +04/03/2020 Continues to tolerate decreasing FiO2, continue to wean as tolerated Inflammatory markers continue to trend down Patient did receive hydroxychloroquine x3 doses however, this was discontinued 10/28 QTC of 521 Completed course of azithromycin Continue room to severe 100 mg IV daily Continue dexamethasone 2 mg IV every 8 hours Continue ascorbic acid 500 mg p.o. twice daily Continue vitamin D 400 units p.o. daily Continue zinc sulfate 220 mg p.o. daily Continue melatonin 6 mg p.o. daily at at bedtime Patient chronically on PPI so will hold famotidine Continue full dose anticoagulation with enoxaparin 80 mg subcutaneous every 12 hours Continue albuterol MDI 2 puffs every 6 hous Continue guaifenesin SR 600 mg p.o. every 12 hours Continue aggressive pulmonary toilet (2) Acute respiratory failure with hypoxia Is this a current diagnosis for this admission?: Yes Plan: Secondary to #1. Management as above. (3) Hypertension Qualifiers: Hypertension type: essential hypertension Qualified Code(s): I10 - Essential (primary) hypertension Is this a current diagnosis for this admission?: Yes Plan: BP slightly elevated but acceptable Continue amlodipine 10 mg p.o. daily Continue metoprolol tartrate 12.5 mg p.o. every 12 hours Continue hydralazine 10 mg IV every 4 hours PRN (4) Dyslipidemia Is this a current diagnosis for this admission?: Yes Plan: Continue atorvastatin 40 mg p.o. daily at bedtime Continue fenofibrate 48 mg p.o. daily at bedtime - Time Time Spent with patient: 25-34 minutes Medications reviewed and adjusted accordingly: Yes Anticipated discharge: Home Within: within 72 hours
[2020-04-16 18:41] LABS: APPEARANCE,URINE CLEAR; BILIRUBIN,URINE NEGATIVE (NEGATIVE); COLOR,URINE YELLOW; GLUCOSE, URINE NEGATIVE (NEGATIVE); KETONES,URINE NEGATIVE (NEGATIVE); LEUKOCYTE ESTERASE,URINE NEGATIVE (NEGATIVE); NITRITE,URINE NEGATIVE (NEGATIVE); PROTEIN,URINE NEGATIVE (NEGATIVE); URINE SPECIFIC GRAVITY 1.012; UROBILINOGEN,URINE NEGATIVE mg/dL (<2.0)
[2020-04-16] MEDS: FENOFIBRATE NANOCRYSTALLIZED 48 MG TABLET PO SCH (21:01)
[2020-04-16] MEDS: ATORVASTATIN CALCIUM 40 MG TABLET PO SCH (21:01)
[2020-04-16] MEDS: MELATONIN 3 MG TABLET PO SCH (21:01)
[2020-04-17] MEDS: ALBUTEROL SULFATE HFA (90 MCG/PUFF) 8 GM MDI IH SCH ×4 (01:00→17:32)
[2020-04-17] MEDS: DEXAMETHASONE SOD PHOSPHATE INJ 4 MG/1 ML VIAL IV SCH ×3 (05:48→21:36)
[2020-04-17] MEDS: NORMAL SALINE 1000 ML 1,000 ML IV PRN (06:13)
[2020-04-17 08:31] LABS: HEMATOCRIT 44.3 % (37.9-51.0); HEMOGLOBIN 15.2 g/dL (13.5-17.0); MEAN CORPUSCULAR HEMOGLOBIN 30.8 pg (27.0-33.4); MEAN CORPUSCULAR HGB CONC 34.3 g/dL (32.0-36.0); MEAN CORPUSCULAR VOLUME 90 fl (80-97); PLATELET COUNT 289 10^3/uL (150-450); RED BLOOD COUNT 4.93 10^6/uL (4.35-5.55); RED CELL DISTRIBUTION WIDTH 12.9 % (11.5-14.0); WHITE BLOOD COUNT 7.9 10^3/uL (4.0-10.5)
[2020-04-17 08:50] LABS: ABSOLUTE LYMPHOCYTES# (MANUAL) 0.3 10^3/uL (0.5-4.7); ABSOLUTE MONOCYTES # (MANUAL) 0.7 10^3/uL (0.1-1.4); BASOPHILS % (MANUAL) 0 % (0-2); EOSINOPHILS % (MANUAL) 0 % (0-6); LYMPHOCYTES % (MANUAL) 4 % (13-45); MONOCYTES % (MANUAL) 9 % (3-13); RBC MORPHOLOGY COMMENT NORMO-CYTIC/CHROMIC; SEGMENTED NEUTROPHILS % (MAN) 87 % (42-78); TOTAL CELLS COUNTED 100
[2020-04-17 08:51] LABS: PLATELET COMMENT ADEQUATE
--- NOTE | 2020-04-17 09:52 | PDOC PROGRESS REPORT ---
Subjective Progress Note for:: 04/17/20 Subjective:: Patient states that he feels as if his breathing is "pretty good" today Reason For Visit: ACUTE RESPIRATORY FAILURE WITH HYPOXA,COVID Physical Exam Vital Signs: Temp Pulse Resp BP Pulse Ox 97.4 F 56 L 16 165/86 H 96 04/17/20 08:00 04/17/20 08:00 04/17/20 08:00 04/17/20 08:00 04/17/20 08:00 Pulse Oximeter Continuous Start: 04/09/20 15:38 Freq: RTQ4 Status: Active Protocol: Document 04/17/20 07:50 [facility] (Rec: 04/17/20 08:31 [facility] [email or web address]) Pulse Oximetry Assessment Oxygen Saturation (92-100) 96 Oxygen Flow Rate (L/min) 4 Oxygen Delivery Method Oxymizer Oxygen Conserving Device Fraction of Inspired Oxygen (FIO2) 36 Equipment Usage Equipment in Use Continuous SpO2 Machine # 5 Intake & Output 04/16/20 04/17/20 04/18/20 06:59 06:59 06:59 Intake Total 1876 3904 Output Total 3825 4225 Balance -1949 -321 Weight 78.1 kg 78 kg General appearance: PRESENT: no acute distress, cooperative, well-developed, well-nourished Head exam: PRESENT: atraumatic, normocephalic Eye exam: PRESENT: conjunctiva pink Mouth exam: PRESENT: moist, tongue midline Neck exam: PRESENT: full ROM. ABSENT: JVD, tracheal deviation Respiratory exam: PRESENT: clear to auscultation jorge, decreased breath sounds, symmetrical, unlabored. ABSENT: accessory muscle use, rales, retraction, rhonchi, wheezes Cardiovascular exam: PRESENT: RRR, +S1, +S2 Pulses: PRESENT: normal carotid pulses, normal radial pulses Vascular exam: PRESENT: normal capillary refill GI/Abdominal exam: PRESENT: normal bowel sounds, soft. ABSENT: distended, tenderness Rectal exam: PRESENT: deferred Extremities exam: PRESENT: full ROM. ABSENT: calf tenderness, clubbing, pedal edema Musculoskeletal exam: PRESENT: ambulatory Neurological exam: PRESENT: alert, awake, oriented to person, oriented to place, oriented to time, oriented to situation, CN II-XII grossly intact. ABSENT: motor sensory deficit Psychiatric exam: ABSENT: agitated, anxious Skin exam: PRESENT: dry, normal color, warm. ABSENT: abrasion Results Laboratory Results: 04/17/20 07:57 04/17/20 07:57 04/16/20 04/17/20 04/17/20 18:00 07:57 07:57 WBC 7.9 RBC 4.93 Hgb 15.2 Hct 44.3 MCV 90 MCH 30.8 MCHC 34.3 RDW 12.9 Plt Count 289 Seg Neutrophils % Not Reportable Sodium Cancelled Potassium Cancelled Chloride Cancelled Carbon Dioxide Cancelled Anion Gap Cancelled BUN Cancelled Creatinine Cancelled Est GFR ( Amer) Cancelled Est GFR (Non-Af Amer) Cancelled Glucose Cancelled Calcium Cancelled Urine Color YELLOW Urine Appearance CLEAR Urine pH 6.0 Ur Specific [place] 1.012 Urine Protein NEGATIVE Urine Glucose (UA) NEGATIVE Urine Ketones NEGATIVE Urine Blood NEGATIVE Urine Nitrite NEGATIVE Ur Leukocyte Esterase NEGATIVE Urine WBC (Auto) 0 Urine RBC (Auto) 0 04/09/20 13:44 Troponin I < 0.012 Impressions: Chest X-Ray 04/09/20 13:34 IMPRESSION: Bilateral airspace disease, pneumonia versus atelectasis. May represent an atypical infectious/ inflammatory process. Assessment and Plan - Diagnosis (1) Pneumonia due to COVID-19 virus Is this a current diagnosis for this admission?: Yes Plan: Confirmed SARS-CoV-2 positive 04/03/2020 Continues to tolerate decreasing FiO2, continue to wean as tolerated Inflammatory markers continue to trend down, recheck ferritin, CRP, and D-Dimer in a.m. Patient did receive hydroxychloroquine x3 doses however, this was discontinued 2/2 QTC of 521 Completed course of azithromycin Completed course of remdesivir Continue dexamethasone 2 mg IV every 8 hours Continue ascorbic acid 500 mg p.o. twice daily Continue vitamin D 400 units p.o. daily Continue zinc sulfate 220 mg p.o. daily Continue melatonin 6 mg p.o. daily at at bedtime Patient chronically on PPI so will hold famotidine Continue full dose anticoagulation with enoxaparin 80 mg subcutaneous every 12 hours Continue albuterol MDI 2 puffs every 6 hours Continue guaifenesin SR 600 mg p.o. every 12 hours Continue aggressive pulmonary toilet (2) Acute respiratory failure with hypoxia Is this a current diagnosis for this admission?: Yes (3) Hypertension Qualifiers: Hypertension type: essential hypertension Qualified Code(s): I10 - Essential (primary) hypertension Is this a current diagnosis for this admission?: Yes Plan: BP slightly elevated but acceptable Continue amlodipine 10 mg p.o. daily Continue metoprolol tartrate 12.5 mg p.o. every 12 hours, no room in HR to titrate Add scheduled hydralazine 10 mg po q12h, could consider ACEI or ARB however there continues to be conflicting literature on use of ACEI/ARB in patients with COVID Continue hydralazine 10 mg IV every 4 hours PRN (4) Dyslipidemia Is this a current diagnosis for this admission?: Yes Plan: Continue atorvastatin 40 mg p.o. daily at bedtime Continue fenofibrate 48 mg p.o. daily at bedtime - Time Time Spent with patient: 25-34 minutes Medications reviewed and adjusted accordingly: Yes Anticipated discharge: Home Within: Other
[2020-04-17 10:23] LABS: ANION GAP 6 (5-19); BLOOD UREA NITROGEN 22 mg/dL (7-20); CALCIUM 8.9 mg/dL (8.4-10.2); CARBON DIOXIDE 23 mmol/L (22-30); CHLORIDE 107 mmol/L (98-107); GLUCOSE 201 mg/dL (75-110); POTASSIUM 4.6 mmol/L (3.6-5.0)
[2020-04-17] MEDS: ASCORBIC ACID 500 MG TABLET PO SCH ×2 (10:36→17:31)
[2020-04-17] MEDS: PANTOPRAZOLE SODIUM 20 MG TABLET.DR PO SCH (10:37)
[2020-04-17] MEDS: AMLODIPINE BESYLATE 10 MG TABLET PO SCH (10:37)
[2020-04-17] MEDS: CHOLECALCIFEROL (D3) 400 UNIT TABLET PO SCH (10:37)
[2020-04-17] MEDS: HYDRALAZINE HCL 10 MG TABLET PO SCH ×2 (10:37→21:35)
[2020-04-17] MEDS: GUAIFENESIN 600 MG TABLET.SA PO SCH ×2 (10:37→21:36)
[2020-04-17] MEDS: ZINC SULFATE 220 MG CAPSULE PO SCH (10:37)
[2020-04-17] MEDS: METOPROLOL TARTRATE 25 MG TABLET PO SCH ×2 (10:37→21:36)
[2020-04-17] MEDS: ENOXAPARIN SODIUM INJ 80 MG/0.8 ML DISP.SYRIN SUBCUT SCH ×2 (10:39→21:38)
[2020-04-17] MEDS: ATORVASTATIN CALCIUM 40 MG TABLET PO SCH (21:35)
[2020-04-17] MEDS: MELATONIN 3 MG TABLET PO SCH (21:35)
[2020-04-17] MEDS: FENOFIBRATE NANOCRYSTALLIZED 48 MG TABLET PO SCH (21:38)
[2020-04-18 05:02] LABS: HEMATOCRIT 43.5 % (37.9-51.0); HEMOGLOBIN 14.7 g/dL (13.5-17.0); MEAN CORPUSCULAR HEMOGLOBIN 30.5 pg (27.0-33.4); MEAN CORPUSCULAR HGB CONC 33.9 g/dL (32.0-36.0); MEAN CORPUSCULAR VOLUME 90 fl (80-97); PLATELET COUNT 263 10^3/uL (150-450); RED BLOOD COUNT 4.82 10^6/uL (4.35-5.55); RED CELL DISTRIBUTION WIDTH 12.9 % (11.5-14.0); WHITE BLOOD COUNT 8.4 10^3/uL (4.0-10.5)
[2020-04-18 05:13] LABS: BLOOD UREA NITROGEN 23 mg/dL (7-20); C-REACTIVE PROTEIN 7.5 mg/L (<10.0); CALCIUM 9.1 mg/dL (8.4-10.2); GLUCOSE 125 mg/dL (75-110); POTASSIUM 4.8 mmol/L (3.6-5.0)
[2020-04-18 05:17] LABS: CARBON DIOXIDE 25 mmol/L (22-30); CHLORIDE 107 mmol/L (98-107)
[2020-04-18 05:18] LABS: ANION GAP 3 (5-19)
[2020-04-18 05:21] LABS: ABSOLUTE LYMPHOCYTES# (MANUAL) 0.3 10^3/uL (0.5-4.7); ABSOLUTE MONOCYTES # (MANUAL) 0.2 10^3/uL (0.1-1.4); BASOPHILS % (MANUAL) 0 % (0-2); EOSINOPHILS % (MANUAL) 0 % (0-6); LYMPHOCYTES % (MANUAL) 4 % (13-45); MONOCYTES % (MANUAL) 2 % (3-13); SEGMENTED NEUTROPHILS % (MAN) 94 % (42-78); TOTAL CELLS COUNTED 100
[2020-04-18 05:22] LABS: PLATELET COMMENT ADEQUATE; RBC MORPHOLOGY COMMENT NORMO-CYTIC/CHROMIC
[2020-04-18] MEDS: DEXAMETHASONE SOD PHOSPHATE INJ 4 MG/1 ML VIAL IV SCH ×3 (05:58→22:06)
[2020-04-18] MEDS: ALBUTEROL SULFATE HFA (90 MCG/PUFF) 8 GM MDI IH SCH ×4 (05:59→17:09)
[2020-04-18] MEDS: HYDRALAZINE HCL 10 MG TABLET PO SCH ×2 (09:48→22:05)
[2020-04-18] MEDS: METOPROLOL TARTRATE 25 MG TABLET PO SCH ×2 (09:48→22:06)
[2020-04-18] MEDS: CHOLECALCIFEROL (D3) 400 UNIT TABLET PO SCH (09:49)
[2020-04-18] MEDS: ASCORBIC ACID 500 MG TABLET PO SCH ×2 (09:49→17:09)
[2020-04-18] MEDS: AMLODIPINE BESYLATE 10 MG TABLET PO SCH (09:49)
[2020-04-18] MEDS: GUAIFENESIN 600 MG TABLET.SA PO SCH ×2 (09:49→22:05)
[2020-04-18] MEDS: ZINC SULFATE 220 MG CAPSULE PO SCH (09:49)
[2020-04-18] MEDS: ENOXAPARIN SODIUM INJ 80 MG/0.8 ML DISP.SYRIN SUBCUT SCH ×2 (09:49→22:06)
[2020-04-18] MEDS: PANTOPRAZOLE SODIUM 20 MG TABLET.DR PO SCH (09:49)
[2020-04-18] MEDS: NORMAL SALINE 1000 ML 1,000 ML IV PRN (10:14)
[2020-04-18 19:47] LABS: APPEARANCE,URINE CLEAR; BILIRUBIN,URINE NEGATIVE (NEGATIVE); COLOR,URINE YELLOW; GLUCOSE, URINE NEGATIVE (NEGATIVE); KETONES,URINE NEGATIVE (NEGATIVE); LEUKOCYTE ESTERASE,URINE NEGATIVE (NEGATIVE); NITRITE,URINE NEGATIVE (NEGATIVE); PROTEIN,URINE NEGATIVE (NEGATIVE); URINE SPECIFIC GRAVITY 1.016
--- NOTE | 2020-04-18 21:14 | PDOC PROGRESS REPORT ---
Subjective Progress Note for:: 04/18/20 Subjective:: Patient states that he is breathing much better today Reason For Visit: ACUTE RESPIRATORY FAILURE WITH HYPOXA,COVID Physical Exam Vital Signs: Temp Pulse Resp BP Pulse Ox 97.9 F 66 18 127/76 H 93 04/18/20 20:00 04/18/20 20:00 04/18/20 20:42 04/18/20 20:00 04/18/20 20:42 Pulse Oximeter Continuous Start: 04/09/20 15:38 Freq: RTQ4 Status: Active Protocol: Document 04/18/20 20:42 ARIANNA (Rec: 04/18/20 20:43 ARIANNA [email or web address]) Pulse Oximetry Assessment Oxygen Saturation (92-100) 93 Oxygen Delivery Method Room Air Fraction of Inspired Oxygen (FIO2) 21 Equipment Usage Equipment in Use Continuous SpO2 Machine # 5 Intake & Output 04/17/20 04/18/20 04/19/20 06:59 06:59 06:59 Intake Total 3904 1000 1544 Output Total 4225 1200 1475 Balance -321 -200 69 Weight 78 kg 78 kg 78 kg General appearance: PRESENT: no acute distress, cooperative Head exam: PRESENT: atraumatic, normocephalic Eye exam: PRESENT: conjunctiva pink Mouth exam: PRESENT: moist, tongue midline Neck exam: ABSENT: JVD Respiratory exam: PRESENT: clear to auscultation jorge, decreased breath sounds, symmetrical, unlabored. ABSENT: accessory muscle use, rales, rhonchi, wheezes Cardiovascular exam: PRESENT: RRR, +S1, +S2 Pulses: PRESENT: normal radial pulses GI/Abdominal exam: PRESENT: normal bowel sounds, soft. ABSENT: distended, tenderness Rectal exam: PRESENT: deferred Extremities exam: PRESENT: full ROM. ABSENT: calf tenderness, clubbing Musculoskeletal exam: PRESENT: ambulatory Neurological exam: PRESENT: alert, awake, oriented to person, oriented to place, oriented to time, oriented to situation, CN II-XII grossly intact, motor sensory deficit Psychiatric exam: ABSENT: agitated, anxious Skin exam: PRESENT: dry, normal color, warm Results Laboratory Results: 04/18/20 04:18 04/18/20 04:18 04/18/20 04/18/20 04/18/20 04:18 04:18 18:35 WBC 8.4 RBC 4.82 Hgb 14.7 Hct 43.5 MCV 90 MCH 30.5 MCHC 33.9 RDW 12.9 Plt Count 263 Seg Neutrophils % Not Reportable Sodium 134.8 L Potassium 4.8 Chloride 107 Carbon Dioxide 25 Anion Gap 3 L BUN 23 H Creatinine 0.59 Est GFR ( Amer) > 60 Glucose 125 H Calcium 9.1 Ferritin 573.00 H C-Reactive Protein 7.5 Urine Color YELLOW Urine Appearance CLEAR Urine pH 6.0 Ur Specific [place] 1.016 Urine Protein NEGATIVE Urine Glucose (UA) NEGATIVE Urine Ketones NEGATIVE Urine Blood NEGATIVE Urine Nitrite NEGATIVE Ur Leukocyte Esterase NEGATIVE Urine WBC (Auto) 1 Urine RBC (Auto) 0 04/09/20 13:44 Troponin I < 0.012 Impressions: Chest X-Ray 04/09/20 13:34 IMPRESSION: Bilateral airspace disease, pneumonia versus atelectasis. May represent an atypical infectious/ inflammatory process. Assessment and Plan - Diagnosis (1) Pneumonia due to COVID-19 virus Is this a current diagnosis for this admission?: Yes Plan: Confirmed SARS-CoV-2 positive 04/03/2020 Patient currently on room air and tolerating with SpO2 greater than 90% Inflammatory markers continue to trend down Patient did receive hydroxychloroquine x3 doses however, this was discontinued 10/28 QTC of 521 Completed course of azithromycin Completed course of remdesivir Decrease dexamethasone to 2 mg IV every 12 hours Continue ascorbic acid 500 mg p.o. twice daily Continue vitamin D 400 units p.o. daily Continue zinc sulfate 220 mg p.o. daily Continue melatonin 6 mg p.o. daily at at bedtime Patient chronically on PPI so will continue to hold famotidine Continue full dose anticoagulation with enoxaparin 80 mg subcutaneous every 12 hours, d-dimer continues to trend down (1.29 today) Continue albuterol MDI 2 puffs every 6 hours Continue guaifenesin SR 600 mg p.o. every 12 hours Continue aggressive pulmonary toilet (2) Acute respiratory failure with hypoxia Is this a current diagnosis for this admission?: Yes (3) Hypertension Qualifiers: Hypertension type: essential hypertension Qualified Code(s): I10 - Essential (primary) hypertension Is this a current diagnosis for this admission?: Yes Plan: BP improved today Continue amlodipine 10 mg p.o. daily Continue metoprolol tartrate 12.5 mg p.o. every 12 hours, no room in HR to titrate Continue scheduled hydralazine 10 mg po q12h, could consider ACEI or ARB however there continues to be conflicting literature on use of ACEI/ARB in patients with COVID Continue hydralazine 10 mg IV every 4 hours PRN (4) Dyslipidemia Is this a current diagnosis for this admission?: Yes Plan: Continue atorvastatin 40 mg p.o. daily at bedtime Continue fenofibrate 48 mg p.o. daily at bedtime - Time Time Spent with patient: 25-34 minutes Medications reviewed and adjusted accordingly: Yes Anticipated Discharge Disposition: Home, Self Care Anticipated Discharge: within 48 hours
[2020-04-18] MEDS: MELATONIN 3 MG TABLET PO SCH (22:04)
[2020-04-18] MEDS: FENOFIBRATE NANOCRYSTALLIZED 48 MG TABLET PO SCH (22:05)
[2020-04-18] MEDS: ATORVASTATIN CALCIUM 40 MG TABLET PO SCH (22:05)
[2020-04-19] MEDS: ALBUTEROL SULFATE HFA (90 MCG/PUFF) 8 GM MDI IH SCH ×5 (01:00→23:25)
[2020-04-19] MEDS: NORMAL SALINE 1000 ML 1,000 ML IV PRN ×2 (05:31→23:18)
[2020-04-19 05:38] LABS: BLOOD UREA NITROGEN 22 mg/dL (7-20); CALCIUM 8.9 mg/dL (8.4-10.2); CARBON DIOXIDE 25 mmol/L (22-30); GLUCOSE 121 mg/dL (75-110); POTASSIUM 4.8 mmol/L (3.6-5.0)
[2020-04-19 05:44] LABS: CHLORIDE 107 mmol/L (98-107)
[2020-04-19 05:51] LABS: ANION GAP 4 (5-19)
[2020-04-19] MEDS: CHOLECALCIFEROL (D3) 400 UNIT TABLET PO SCH (10:15)
[2020-04-19] MEDS: ZINC SULFATE 220 MG CAPSULE PO SCH (10:15)
[2020-04-19] MEDS: HYDRALAZINE HCL 10 MG TABLET PO SCH ×2 (10:15→23:23)
[2020-04-19] MEDS: PANTOPRAZOLE SODIUM 20 MG TABLET.DR PO SCH (10:16)
[2020-04-19] MEDS: METOPROLOL TARTRATE 25 MG TABLET PO SCH ×2 (10:16→23:24)
[2020-04-19] MEDS: ASCORBIC ACID 500 MG TABLET PO SCH ×2 (10:16→18:33)
[2020-04-19] MEDS: AMLODIPINE BESYLATE 10 MG TABLET PO SCH (10:17)
[2020-04-19] MEDS: DEXAMETHASONE SOD PHOSPHATE INJ 4 MG/1 ML VIAL IV SCH ×2 (10:17→23:23)
[2020-04-19] MEDS: GUAIFENESIN 600 MG TABLET.SA PO SCH ×2 (10:17→23:24)
[2020-04-19] MEDS: ENOXAPARIN SODIUM INJ 80 MG/0.8 ML DISP.SYRIN SUBCUT SCH ×2 (10:20→23:22)
--- NOTE | 2020-04-19 11:41 | PDOC PROGRESS REPORT ---
Subjective Progress Note for:: 04/19/20 Subjective:: Patient reports that he feels well today his breathing is close to baseline Reason For Visit: ACUTE RESPIRATORY FAILURE WITH HYPOXA,COVID Physical Exam Vital Signs: Temp Pulse Resp BP Pulse Ox 97.7 F 64 17 139/74 H 96 04/19/20 07:39 04/19/20 07:39 04/19/20 07:39 04/19/20 07:39 04/19/20 07:39 Pulse Oximeter Continuous Start: 04/09/20 15:38 Freq: RTQ4 Status: Active Protocol: Document 04/19/20 04:35 ARIANNA (Rec: 04/19/20 05:11 ARIANNA [id number]) Pulse Oximetry Assessment Oxygen Saturation (92-100) 96 Oxygen Delivery Method Nasal Cannula Fraction of Inspired Oxygen (FIO2) 21 Equipment Usage Equipment in Use Continuous Pulse Oximeter 24 Hour Charge Charge Now Continuous SpO2 Machine # 5 Intake & Output 04/18/20 04/19/20 04/20/20 06:59 06:59 06:59 Intake Total 1000 3508 Output Total 1200 4175 Balance -200 -667 Weight 78 kg 76.6 kg General appearance: PRESENT: no acute distress, cooperative, well-developed, well-nourished Head exam: PRESENT: atraumatic, normocephalic Eye exam: PRESENT: conjunctiva pink Mouth exam: PRESENT: moist, tongue midline Neck exam: ABSENT: JVD Respiratory exam: PRESENT: clear to auscultation jorge, symmetrical, unlabored Cardiovascular exam: PRESENT: RRR, +S1, +S2 Pulses: PRESENT: normal radial pulses Vascular exam: PRESENT: normal capillary refill GI/Abdominal exam: PRESENT: normal bowel sounds, soft Rectal exam: PRESENT: deferred Extremities exam: PRESENT: full ROM. ABSENT: calf tenderness, pedal edema Neurological exam: PRESENT: alert, awake, oriented to person, oriented to place, oriented to time, oriented to situation, CN II-XII grossly intact, motor sensory deficit Psychiatric exam: PRESENT: appropriate affect, normal mood. ABSENT: agitated, anxious Skin exam: PRESENT: dry, normal color, warm Results Laboratory Results: 04/18/20 04:18 04/19/20 04:37 04/18/20 04/19/20 18:35 04:37 Sodium 136.3 L Potassium 4.8 Chloride 107 Carbon Dioxide 25 Anion Gap 4 L BUN 22 H Creatinine 0.56 Est GFR ( Amer) > 60 Glucose 121 H Calcium 8.9 Urine Color YELLOW Urine Appearance CLEAR Urine pH 6.0 Ur Specific [place] 1.016 Urine Protein NEGATIVE Urine Glucose (UA) NEGATIVE Urine Ketones NEGATIVE Urine Blood NEGATIVE Urine Nitrite NEGATIVE Ur Leukocyte Esterase NEGATIVE Urine WBC (Auto) 1 Urine RBC (Auto) 0 04/09/20 13:44 Troponin I < 0.012 Impressions: Chest X-Ray 04/09/20 13:34 IMPRESSION: Bilateral airspace disease, pneumonia versus atelectasis. May represent an atypical infectious/ inflammatory process. Assessment and Plan - Diagnosis (1) Pneumonia due to COVID-19 virus Is this a current diagnosis for this admission?: Yes Plan: Confirmed SARS-CoV-2 positive 04/03/2020 Patient currently on room air and tolerating with SPO2 during exam of 95% Reports of one episode of desaturation which does not seem to be documented Aggressively ambulate patient today and if his oxygen saturations remain greater than 90 we will plan for D/C in a.m. Inflammatory markers continue to trend down Patient did receive hydroxychloroquine x3 doses however, this was discontinued 2/ QTC of 521 Completed course of azithromycin Completed course of remdesivir Decrease dexamethasone to 2 mg IV every 12 hours, patient has been on steroid therapy since 04/09/2020 thus will continue a short steroid taper Continue ascorbic acid 500 mg p.o. twice daily Continue vitamin D 400 units p.o. daily Continue zinc sulfate 220 mg p.o. daily Continue melatonin 6 mg p.o. daily at at bedtime Patient chronically on PPI so will continue to hold famotidine Continue full dose anticoagulation with enoxaparin 80 mg subcutaneous every 12 hours, d-dimer continues to trend down (1.29 today) Continue albuterol MDI 2 puffs every 6 hours Continue guaifenesin SR 600 mg p.o. every 12 hours Continue aggressive pulmonary toilet (2) Acute respiratory failure with hypoxia Is this a current diagnosis for this admission?: Yes Plan: Secondary to #1. Remains off supplemental oxygen (3) Hypertension Qualifiers: Hypertension type: essential hypertension Qualified Code(s): I10 - Essential (primary) hypertension Is this a current diagnosis for this admission?: Yes Plan: BP improved today Continue amlodipine 10 mg p.o. daily Continue metoprolol tartrate 12.5 mg p.o. every 12 hours, no room in HR to titrate Continue hydralazine 10 mg po q12h, could consider ACEI or ARB however there continues to be conflicting literature on use of ACEI/ARB in patients with COVID Continue hydralazine 10 mg IV every 4 hours PRN (4) Dyslipidemia Is this a current diagnosis for this admission?: Yes Plan: Continue atorvastatin 40 mg p.o. daily at bedtime Continue fenofibrate 48 mg p.o. daily at bedtime - Time Time Spent with patient: 25-34 minutes Medications reviewed and adjusted accordingly: Yes Anticipated Discharge Disposition: Home, Self Care Anticipated Discharge: within 24 hours
[2020-04-19] MEDS: ATORVASTATIN CALCIUM 40 MG TABLET PO SCH (23:24)
[2020-04-19] MEDS: FENOFIBRATE NANOCRYSTALLIZED 48 MG TABLET PO SCH (23:24)
[2020-04-19] MEDS: MELATONIN 3 MG TABLET PO SCH (23:24)
[2020-04-20] MEDS: METOPROLOL TARTRATE 25 MG TABLET PO SCH ×2 (00:23→10:48)
[2020-04-20] MEDS: ALBUTEROL SULFATE HFA (90 MCG/PUFF) 8 GM MDI IH SCH ×2 (07:13→13:00)
--- NOTE | 2020-04-20 09:55 | PDOC DISCHARGE SUMMARY ---
Impression - Admit/DC Date/PCP Admission Date/Primary Care Provider: 04/09/20 15:14 Discharge Date: 04/20/20 - Discharge Diagnosis (1) Pneumonia due to COVID-19 virus Is this a current diagnosis for this admission?: Yes (2) Acute respiratory failure with hypoxia Is this a current diagnosis for this admission?: Yes (3) Hypertension Is this a current diagnosis for this admission?: Yes (4) Dyslipidemia Is this a current diagnosis for this admission?: Yes - Additional Information Resuscitation Status: Full Code Discharge Diet: Cardiac Discharge Activity: Activity As Tolerated Prescriptions: Hydralazine HCl [Apresoline 10 mg Tablet] 10 mg PO Q12 #60 tablet Dexamethasone 1 mg PO ASDIR #9 tablet Metoprolol Tartrate [Lopressor 25 mg Tablet] 12.5 mg PO Q12 #30 tablet Melatonin [Melatonin 3 mg Tablet] 6 mg PO QHS #10 tablet Ascorbic Acid [Vitamin C 500 mg Tablet] 500 mg PO BID #20 tablet Cholecalciferol (Vitamin D3) [Vitamin D3 400 Unit Tablet] 400 unit PO DAILY #10 tablet Zinc Sulfate [Zinc-220 Capsule] 220 mg PO DAILY #10 capsule Home Medications: Amlodipine Besylate [Norvasc 10 mg Tablet] 10 mg PO DAILY 04/09/20 Atorvastatin Calcium [Lipitor 40 mg Tablet] 40 mg PO QHS 04/09/20 Fenofibrate Nanocrystallized [Tricor 48 mg Tablet] 54 mg PO QHS 04/09/20 Omeprazole 20 mg PO DAILY 04/09/20 Ascorbic Acid [Vitamin C 500 mg Tablet] 500 mg PO BID #20 tablet 04/20/20 Cholecalciferol (Vitamin D3) [Vitamin D3 400 Unit Tablet] 400 unit PO DAILY #10 tablet 04/20/20 Dexamethasone 1 mg PO ASDIR #9 tablet 04/20/20 Hydralazine HCl [Apresoline 10 mg Tablet] 10 mg PO Q12 #60 tablet 04/20/20 Melatonin [Melatonin 3 mg Tablet] 6 mg PO QHS #10 tablet 04/20/20 Metoprolol Tartrate [Lopressor 25 mg Tablet] 12.5 mg PO Q12 #30 tablet 04/20/20 Zinc Sulfate [Zinc-220 Capsule] 220 mg PO DAILY #10 capsule 04/20/20 History of Present Illiness History of Present Illness: MARYLU SINGH is a 69 year old male with PMH significant for HTN, dyslipidemia, and GERD who presented to the emergency department on 04/03/2020 with complaints of generalized weakness. At that time he was tested for SA RS-CoV-2 and discharged home. Subsequently he was notified that his SARS-CoV-2 test was positive. On 04/09/2020 he re-presented in the ED with complaints of chest discomfort on deep inspiration, cough, and dyspnea at rest. Additionally, he reported a low-grade fever for the preceding 24 hours. In the ED he was found to be tachypneic, tachycardic, and hypoxic. Inflammatory markers were obtained as well as a d-dimer. Chest x-ray revealed worsening bilateral airspace disease and the patient was admitted for further evaluation and treatment. Hospital Course Hospital Course: The patient was treated with current standard treatment for COVID pneumonia including REM just severe, antibiotics, ascorbic acid, zinc, vitamin D, systemic steroids, and full dose anticoagulation. Additionally, he required supplemental oxygen therapy. Patient progressed well and completed his full dose of antibiotics and REM to severe. He remained on IV steroids until the time of discharge. A steroid wean was initiated however he will complete his steroid taper as an outpatient. At the time of discharge patient's d-dimer was down to 0.92 and had been trending down progressively since admission. He had no signs of thrombosis. On the patient's day of discharge he was ambulatory in his room with no HART. His oxygen saturation remained stable in the mid to upper 90s on room air. He felt well and was nontoxic in appearance. Additional hospital problems included poorly controlled HTN. He was started on oral Toprol all as well as hydralazine. At some point in the future and ACEI should be considered however, this was not done during his hospital course given the inconsistent literature on the use of ACEI's/ARBs in patients infected with COVID-19. (1) Pneumonia due to COVID-19 virus Is this a current diagnosis for this admission?: Yes Plan: Confirmed SARS-CoV-2 positive 04/03/2020 Patient currently on room air and tolerating with SPO2 during exam of 95% Reports of one episode of desaturation which does not seem to be documented Aggressively ambulate patient today and if his oxygen saturations remain greater than 90 we will plan for D/C in a.m. Inflammatory markers continue to trend down Patient did receive hydroxychloroquine x3 doses however, this was discontinued 2/2 QTC of 521 Completed course of azithromycin Completed course of remdesivir Decrease dexamethasone to 2 mg IV every 12 hours, patient has been on steroid therapy since 04/09/2020 thus will continue a short steroid taper Continue ascorbic acid 500 mg p.o. twice daily Continue vitamin D 400 units p.o. daily Continue zinc sulfate 220 mg p.o. daily Continue melatonin 6 mg p.o. daily at at bedtime Patient chronically on PPI so will continue to hold famotidine Continue full dose anticoagulation with enoxaparin 80 mg subcutaneous every 12 hours, d-dimer continues to trend down (1.29 today) Continue albuterol MDI 2 puffs every 6 hours Continue guaifenesin SR 600 mg p.o. every 12 hours Continue aggressive pulmonary toilet (2) Acute respiratory failure with hypoxia Is this a current diagnosis for this admission?: Yes Plan: Secondary to #1. Remains off supplemental oxygen (3) Hypertension Qualifiers: Hypertension type: essential hypertension Qualified Code(s): I10 - Essential (primary) hypertension Is this a current diagnosis for this admission?: Yes Plan: BP improved today Continue amlodipine 10 mg p.o. daily Continue metoprolol tartrate 12.5 mg p.o. every 12 hours, no room in HR to titrate Continue hydralazine 10 mg po q12h, could consider ACEI or ARB however there continues to be conflicting literature on use of ACEI/ARB in patients with COVID Continue hydralazine 10 mg IV every 4 hours PRN (4) Dyslipidemia Is this a current diagnosis for this admission?: Yes Plan: Continue atorvastatin 40 mg p.o. daily at bedtime Continue fenofibrate 48 mg p.o. daily at bedtime Physical Exam Vital Signs: Temp Pulse Resp BP Pulse Ox 97.7 F 50 L 17 118/72 97 04/20/20 07:36 04/20/20 07:36 04/20/20 07:36 04/20/20 07:36 04/20/20 07:36 Pulse Oximeter Continuous Start: 04/09/20 15:38 Freq: RTQ4 Status: Active Protocol: Document 04/20/20 04:11 ARIANNA (Rec: 04/20/20 04:11 ARIANNA [id number]) Pulse Oximetry Assessment Oxygen Saturation (92-100) 97 Oxygen Delivery Method Room Air Fraction of Inspired Oxygen (FIO2) 21 Equipment Usage Equipment in Use Continuous SpO2 Machine # 5 Intake & Output 04/19/20 04/20/20 04/21/20 06:59 06:59 06:59 Intake Total 3508 2309 Output Total 4175 1800 Balance -667 509 Weight 76.6 kg 77.9 kg General appearance: PRESENT: no acute distress, cooperative, well-developed, well-nourished Head exam: PRESENT: atraumatic, normocephalic Eye exam: PRESENT: conjunctiva pink Mouth exam: PRESENT: moist, tongue midline Neck exam: PRESENT: full ROM. ABSENT: JVD Respiratory exam: PRESENT: clear to auscultation jorge, symmetrical, unlabored. ABSENT: accessory muscle use, decreased breath sounds, rhonchi, wheezes Cardiovascular exam: PRESENT: RRR, +S1, +S2 Pulses: PRESENT: normal carotid pulses, normal radial pulses Vascular exam: PRESENT: normal capillary refill GI/Abdominal exam: PRESENT: normal bowel sounds, soft. ABSENT: distended, tenderness Rectal exam: PRESENT: deferred Extremities exam: PRESENT: full ROM. ABSENT: calf tenderness, clubbing, pedal edema Musculoskeletal exam: PRESENT: ambulatory Neurological exam: PRESENT: alert, awake, oriented to person, oriented to place, oriented to time, oriented to situation, CN II-XII grossly intact. ABSENT: motor sensory deficit Psychiatric exam: ABSENT: agitated, anxious Skin exam: PRESENT: dry, normal color, warm Results Laboratory Results: WBC 8.4 10^3/uL (4.0-10.5) 04/18/20 04:18 RBC 4.82 10^6/uL (4.35-5.55) 04/18/20 04:18 Hgb 14.7 g/dL (13.5-17.0) 04/18/20 04:18 Hct 43.5 % (37.9-51.0) 04/18/20 04:18 MCV 90 fl (80-97) 04/18/20 04:18 MCH 30.5 pg (27.0-33.4) 04/18/20 04:18 MCHC 33.9 g/dL (32.0-36.0) 04/18/20 04:18 RDW 12.9 % (11.5-14.0) 04/18/20 04:18 Plt Count 263 10^3/uL (150-450) 04/18/20 04:18 Lymph % (Auto) Not Reportable 04/18/20 04:18 [place] % (Auto) Not Reportable 04/18/20 04:18 Eos % (Auto) Not Reportable 04/18/20 04:18 Baso % (Auto) Not Reportable 04/18/20 04:18 Absolute Neuts (auto) Not Reportable 04/18/20 04:18 Absolute Lymphs (auto) Not Reportable 04/18/20 04:18 Absolute Monos (auto) Not Reportable 04/18/20 04:18 Absolute Eos (auto) Not Reportable 04/18/20 04:18 Absolute Basos (auto) Not Reportable 04/18/20 04:18 Total Counted 100 04/18/20 04:18 Seg Neutrophils % Not Reportable 04/18/20 04:18 Seg Neuts % (Manual) 94 % (42-78) H 04/18/20 04:18 Lymphocytes % (Manual) 4 % (13-45) L 04/18/20 04:18 Monocytes % (Manual) 2 % (3-13) L 04/18/20 04:18 Eosinophils % (Manual) 0 % (0-6) 04/18/20 04:18 Basophils % (Manual) 0 % (0-2) 04/18/20 04:18 Abs Neuts (Manual) 7.9 10^3/uL (1.7-8.2) 04/18/20 04:18 Abs Lymphs (Manual) 0.3 10^3/uL (0.5-4.7) L 04/18/20 04:18 Abs Monocytes (Manual) 0.2 10^3/uL (0.1-1.4) 04/18/20 04:18 Absolute Eos (Manual) 0.0 10^3/uL (0.0-0.6) 04/18/20 04:18 Abs Basophils (Manual) 0.0 10^3/uL (0.0-0.2) 04/18/20 04:18 Platelet Comment ADEQUATE 04/18/20 04:18 RBC Morph Comment NORMO-CYTIC/CHROMIC 04/18/20 04:18 PT 14.2 SEC (11.4-15.4) 04/09/20 13:44 INR 1.10 04/09/20 13:44 D-Dimer 0.92 ug/mL (0.00-0.50) H 04/20/20 04:54 VBG pH 7.40 (7.30-7.42) 04/09/20 13:44 VBG pCO2 45.9 mmHg (35-63) 04/09/20 13:44 VBG HCO3 28.1 mmol/L (20-32) 04/09/20 13:44 VBG Base Excess 2.6 mmol/L 04/09/20 13:44 Sodium 136.3 mmol/L (137-145) L 04/19/20 04:37 Potassium 4.8 mmol/L (3.6-5.0) 04/19/20 04:37 Chloride 107 mmol/L (98-107) 04/19/20 04:37 Carbon Dioxide 25 mmol/L (22-30) 04/19/20 04:37 Anion Gap 4 (5-19) L 04/19/20 04:37 BUN 22 mg/dL (7-20) H 04/19/20 04:37 Creatinine 0.56 mg/dL (0.52-1.25) 04/19/20 04:37 Est GFR ( Amer) > 60 (>60) 04/19/20 04:37 Est GFR (Non-Af Amer) Cancelled 04/17/20 07:57 Est GFR (MDRD) Non-Af > 60 (>60) 04/19/20 04:37 Glucose 121 mg/dL (75-110) H 04/19/20 04:37 Hemoglobin A1c % 5.8 % (4.7-6.0) 04/09/20 13:44 Lactic Acid 1.7 mmol/L (0.7-2.1) 04/09/20 22:09 Calcium 8.9 mg/dL (8.4-10.2) 04/19/20 04:37 Ferritin 573.00 ng/mL (17.9-464.0) H 04/18/20 04:18 Total Bilirubin 0.6 mg/dL (0.2-1.3) 04/13/20 05:31 Direct Bilirubin 0.0 mg/dL (0.0-0.4) 04/13/20 05:31 Neonat Total Bilirubin Not Reportable 04/13/20 05:31 Neonat Direct Bilirubin Not Reportable 04/13/20 05:31 Neonat Indirect Bili Not Reportable 04/13/20 05:31 AST 73 U/L (17-59) H 04/13/20 05:31 ALT 65 U/L (<50) H 04/13/20 05:31 Alkaline Phosphatase 76 U/L (38-126) 04/13/20 05:31 Lactate Dehydrogenase 840 U/L (120-246) H 04/09/20 13:44 Troponin I < 0.012 ng/mL 04/09/20 13:44 C-Reactive Protein 7.5 mg/L (<10.0) 04/18/20 04:18 Total Protein 6.5 g/dL (6.3-8.2) 04/13/20 05:31 Albumin 2.8 g/dL (3.5-5.0) L 04/13/20 05:31 EGFR Cancelled 04/17/20 07:57 Urine Color YELLOW 04/18/20 18:35 Urine Appearance CLEAR 04/18/20 18:35 Urine pH 6.0 (5.0-9.0) 04/18/20 18:35 Ur Specific [place] 1.016 04/18/20 18:35 Urine Protein NEGATIVE mg/dL (NEGATIVE) 04/18/20 18:35 Urine Glucose (UA) NEGATIVE mg/dL (NEGATIVE) 04/18/20 18:35 Urine Ketones NEGATIVE mg/dL (NEGATIVE) 04/18/20 18:35 Urine Blood NEGATIVE (NEGATIVE) 04/18/20 18:35 Urine Nitrite NEGATIVE (NEGATIVE) 04/18/20 18:35 Urine Bilirubin NEGATIVE (NEGATIVE) 04/18/20 18:35 Urine Urobilinogen 2.0 mg/dL (<2.0) H 04/18/20 18:35 Ur Leukocyte Esterase NEGATIVE (NEGATIVE) 04/18/20 18:35 Urine WBC (Auto) 1 /HPF 04/18/20 18:35 Urine RBC (Auto) 0 /HPF 04/18/20 18:35 Urine Bacteria (Auto) TRACE /HPF 04/18/20 18:35 Squamous Epi Cells Auto <1 /HPF 04/09/20 23:55 Urine Mucus (Auto) RARE /LPF 04/18/20 18:35 Urine Ascorbic Acid 40 (NEGATIVE) H 04/18/20 18:35 04/09/20 13:44 Troponin I < 0.012 Impressions: Chest X-Ray 04/09/20 13:34 IMPRESSION: Bilateral airspace disease, pneumonia versus atelectasis. May represent an atypical infectious/ inflammatory process. Plan Health Concerns: Patient will need to remain in quarantine until he has a negative SARS-CoV-2 test. He was instructed on signs or symptoms of concern to include shortness of breath. Plan of Treatment: Patient will be discharged on ascorbic acid, zinc sulfate, melatonin, and a steroid taper. He also will be discharged on 2 new antihypertensive medications (metoprolol 12.5 mg p.o. twice daily/hydralazine 10 mg p.o. twice daily) Goals: To remain symptom-free Time Spent: Greater than 30 Minutes Stroke Is this a Stroke Patient?: No Acute Heart Failure - Is this a Heart Failure Patient?: No
[2020-04-20] MEDS: DEXAMETHASONE SOD PHOSPHATE INJ 4 MG/1 ML VIAL IV SCH (10:46)
[2020-04-20] MEDS: ZINC SULFATE 220 MG CAPSULE PO SCH (10:47)
[2020-04-20] MEDS: ASCORBIC ACID 500 MG TABLET PO SCH (10:48)
[2020-04-20] MEDS: CHOLECALCIFEROL (D3) 400 UNIT TABLET PO SCH (10:51)
[2020-04-20] MEDS: PANTOPRAZOLE SODIUM 20 MG TABLET.DR PO SCH (10:51)
[2020-04-20] MEDS: GUAIFENESIN 600 MG TABLET.SA PO SCH (10:51)
[2020-04-20] MEDS: AMLODIPINE BESYLATE 10 MG TABLET PO SCH (10:52)
[2020-04-20] MEDS: ENOXAPARIN SODIUM INJ 80 MG/0.8 ML DISP.SYRIN SUBCUT SCH (10:54)
[2020-04-20] MEDS: HYDRALAZINE HCL 10 MG TABLET PO SCH (10:54)
[2020-04-20 13:05] VITALS: BP 121/70
== END 2020-04-20 13:42 | disposition home or self-care (01) | DRG 177 ==
LOC: ER 12:55 → EH 15:14 → 3N 17:30
PROVIDERS: ADMIT Internal Medicine; ATTEND Nurse Practitioner
DX: U07.1 COVID-19 (principal); J12.89 Other viral pneumonia; J96.01 Acute respiratory failure with hypoxia; I10 Essential (primary) hypertension; E78.5 Hyperlipidemia, unspecified; K21.9 Gastro-esophageal reflux disease without esophagitis; Z79.899 Other long term (current) drug therapy; Z87.891 Personal history of nicotine dependence
CPT/HCPCS: 36415; 71045; 80048; 80053; 81001; 82728; 82803; 83036; 83605; 83615; 84484; 85025; 85027; 85379; 85610; 86140; 87040; 93005; 93010; 94667; 94762; 94799; 99291; J0456; J1100; J1650; J3490; J7030; J7050; J7060